=== PATIENT | female | born 1930 | race Caucasian/White ===

== ENCOUNTER 2021-06-07 12:23 | Emergency (ER) | payer MEDICARE, BC ==
--- NOTE | 2021-06-07 14:34 | RAD REPORT ---
EXAM DESCRIPTION: US - Extremity Venous Uni Ltd - 06/07/2021 2:20 pm CLINICAL HISTORY: PAIN Leg swelling and edema. COMPARISON: No comparisons FINDINGS: Right lower extremity venous system was interrogated with Doppler technique. Normal flow, compressibility and augmentation was noted. There is no DVT present. IMPRESSION: No evidence of right lower extremity deep venous thrombosis.
--- NOTE | 2021-06-07 15:35 | RAD REPORT ---
EXAM DESCRIPTION: RAD - Hip Right 2 View - 06/07/2021 2:39 pm CLINICAL HISTORY: PAIN COMPARISON: No comparisons FINDINGS: Mild osteoarthritis affects the right hip. No fracture, dislocation or AVN.
--- NOTE | 2021-06-07 16:30 | RAD REPORT ---
EXAM DESCRIPTION: CT - Pelvis Wo Cont - 06/07/2021 4:16 pm CLINICAL HISTORY: right hip pain Right hip pain and swelling COMPARISON: No comparisons TECHNIQUE: All CT scans are performed using dose optimization technique as appropriate and may inclu de automated exposure control or mA/KV adjustment according to patient size. FINDINGS: Diffuse osteopenia is noted. Mild arthritic changes are present in both hips. No acute fracture, dislocation or AVN. Linear lucency is seen involving the right lateral inferior aspect of the L4 vertebral body suspiciou s for mild fracture. IMPRESSION: No right hip or pelvic fracture seen. Mild osteoporotic fracture likely present involving the L4 vertebral body right lateral inferior aspe ct.
[2021-06-07] MEDS ORDERED: FENTANYL CITR 100 MCG/2 ML ONE (16:54)
--- NOTE | 2021-06-07 17:00 | EDPHYS ---
Physician Documentation [facility] Name: Kay Patten Age: 89 yrs Sex: Female : 1930 Arrival Date: 06/07/2021 Time: 12:31 Bed 16 Private MD: Randy Camacho H ED Physician Freddie Parmar HPI: 06/07 13:45 This 89 yrs old Female presents to ER via Wheelchair with complaints of Leg Pain. cp 13:45 The patient presents with pain, that is acute. The complaints affect the right gluteal cp fold, right hamstring, right upper thigh and right quadriceps. 13:45 Context: resulted from an unknown cause, the patient can partially bear weight, the cp patient is able to ambulate, with moderate difficulty. Onset: The symptoms/episode began/occurred 1 week(s) ago. Associated signs and symptoms: Pertinent negatives calf tenderness, fever, numbness, swelling, weakness. Patient reports she is currently taking oral steroids and has pain meds prescribed by DR Balderas. Historical: - Allergies: 12:35 No Known Allergies; jd3 - Home Meds: 12:35 Lisinopril Oral [Active]; glimepiride Oral [Active]; Furosemide Oral [Active]; jd3 gabapentin oral [Active]; Hydrocodone-Acetaminophen Oral [Active]; amlodipine oral [Active]; - PMHx: 12:35 Diabetes - NIDDM; Hypertension; jd3 - Immunization history:: Adult Immunizations up to date, Client reports receiving the 2nd dose of the Covid vaccine. - Social history:: Smoking status: Patient denies any tobacco usage or history of. ROS: 14:00 MS/extremity: Positive for pain, of the right leg, Negative for injury or acute cp deformity, decreased range of motion, paresthesias. 14:00 Constitutional: Negative for body aches, chills, fever, poor PO intake. cp 14:00 Cardiovascular: Negative for chest pain, palpitations. 14:00 Respiratory: Negative for cough, shortness of breath, wheezing. 14:00 Abdomen/GI: Negative for abdominal pain, nausea, vomiting, and diarrhea, constipation, bowel incontinence. 14:00 Back: Negative for injury or acute deformity. 14:00 : Negative for urinary symptoms, difficulty urinating, bladder incontinence. 14:00 Neuro: Negative for dizziness, headache, numbness, tingling, weakness, saddle anesthesia. Exam: 14:03 Constitutional: The patient appears in no acute distress, alert, awake, cp non-diaphoretic, non-toxic, well developed, well nourished. 14:03 Head/Face: Normocephalic, atraumatic. cp 14:03 Eyes: Periorbital structures: appear normal, Conjunctiva: normal, no exudate, no injection, Sclera: no appreciated abnormality, Lids and lashes: appear normal, bilaterally. 14:03 ENT: External ear(s): are unremarkable, Nose: is normal, Mouth: Lips: moist, Oral mucosa: moist, Posterior pharynx: Airway: no evidence of obstruction, patent. 14:03 Neck: ROM/movement: is normal, is supple, without pain, no range of motions limitations. 14:03 Chest/axilla: Inspection: normal. 14:03 Cardiovascular: Rate: normal. 14:03 Respiratory: the patient does not display signs of respiratory distress, Respirations: normal, no use of accessory muscles, no retractions, labored breathing, is not present. 14:03 Abdomen/GI: Inspection: abdomen appears normal, Palpation: abdomen is soft and non-tender, in all quadrants. 14:03 Back: pain, that is moderate, of the right buttock, vertebral tenderness, is not appreciated, Straight leg raises: of both lower extremities does not illicit pain. 14:03 Musculoskeletal/extremity: Extremities: grossly normal except: noted in the right upper thigh and right hamstring: pain, tenderness, ROM: limited passive range of motion due to pain, in the right hip, Perfusion: the extremity is normally perfused throughout. Vital Signs: 12:39 BP 123 / 65; Pulse 70; Resp 17 S; Temp 98.78(TE); Pulse Ox 99% on R/A; Weight 61.69 kg jd3 (R); Height 5 ft. 5 in. (165.10 cm) (R); Pain 10/10; 17:30 BP 124 / 70; Pulse 68; Resp 16; Pulse Ox 98% ; Pain 3/10; cb5 12:39 Body Mass Index 22.63 (61.69 kg, 165.10 cm) jd3 MDM: 16:59 Patient medically screened. cp 16:59 Data reviewed: vital signs, nurses notes, radiologic studies, CT scan, plain films, cp ultrasound. 16:59 Counseling: I had a detailed discussion with the patient and/or guardian regarding: the cp historical points, exam findings, and any diagnostic results supporting the discharge/admit diagnosis, radiology results, the need for outpatient follow up, a spray painting machine operator, neurosurgery, to return to the emergency department if symptoms worsen or persist or if there are any questions or concerns that arise at home. Response to treatment: the patient's symptoms have markedly improved after treatment, and as a result, I will discharge patient. ED course: VSS. Patient has prescribed hydrocodone at home for pain. Recommend use of walker to ambulate. Will discharge to home for continued monitoring. 06/07 13:35 Order name: US Extremity Venous Unilateral Ltd; Complete Time: 15:41 cp 06/07 13:35 Order name: XRAY Hip RIGHT 2 view; Complete Time: 15:41 cp 06/07 15:42 Order name: CT Pelvis wo Cont; Complete Time: 16:34 cp Administered Medications: 16:45 CANCELLED (Physician Discretion): morphine 4 mg IM once; RASS on ADMIN: Combtv4, Very cp Agttd3, Agttd2, Rstlss1, AlertClm0, Drwsy-1, Lt Sdtn-2, Mod Sdtn-3, Dp Sdtn-4, UnArsble-5 16:57 Drug: fentaNYL (PF) 25 mcg Route: IM; Site: right deltoid; cb5 Disposition: 17:15 Chart complete. cp Disposition Summary: 06/07/21 16:59 Discharge Ordered Location: Home cp Problem: new cp Symptoms: have improved cp Condition: Stable cp Diagnosis - Fracture of fourth lumbar vertebra cp - Radiculopathy, lumbar region - right cp Followup: cp - With: Fei Berry MD - When: 1 week - Reason: lumbar vertebral fracture Discharge Instructions: - Discharge Summary Sheet cp - Spinal Compression Fracture cp - Lumbosacral Radiculopathy cp Forms: - Medication Reconciliation Form cp - Thank You Letter cp - Antibiotic Education cp - Prescription Opioid Use cp Addendum: 06/09/2021 08:33 Co-signature as Attending Physician, Freddie Parmar MD I agree with the assessment and k dr plan of care. Signatures: Dispatcher [employer] EDFreddie Canales MD MD kdr Luis Alberto Brown PA PA cp Duncan Maldonado RN RN jd3 Teressa Ramírez RN RN cb5 Corrections: (The following items were deleted from the chart) 06/07 16:45 13:35 morphine 4 mg IM once; RASS on ADMIN: Combtv4, Very Agttd3, Agttd2, Rstlss1, cp AlertClm0, Drwsy-1, Lt Sdtn-2, Mod Sdtn-3, Dp Sdtn-4, UnArsble-5 ordered. cp 17:01 16:59 Wedge compression fracture of unspecified lumbar vertebra, initial encounter for cp closed fracture - Fourth cp
--- NOTE | 2021-06-07 17:00 | ER ---
Nurse's Notes [facility] Name: Kay Patten Age: 89 yrs Sex: Female : 1930 Arrival Date: 06/07/2021 Time: 12:31 Bed 16 Private MD: Randy Camacho H Diagnosis: Fracture of fourth lumbar vertebra;Radiculopathy, lumbar region-right Presentation: 06/07 12:34 Chief complaint: Patient states: "I am having pain in my right leg. Dr. Bautista sent me jd3 here, my pain doctor. he put me on a steroid a couple of days ago think it was a pinched nerve or something, but nothing is helping.". Coronavirus screen: At this time, the client does not indicate any symptoms associated with coronavirus-19. Ebola Screen: No symptoms or risks identified at this time. Initial Sepsis Screen: Does the patient meet any 2 criteria? No. Patient's initial sepsis screen is negative. Does the patient have a suspected source of infection? No. Patient's initial sepsis screen is negative. Risk Assessment: Do you want to hurt yourself or someone else? Patient reports no desire to harm self or others. Note hydrocodone taken about 1 hour ago. Onset of symptoms was June 07, 2021. 12:34 Method Of Arrival: Wheelchair jd3 12:34 Acuity: SALONI 3 jd3 Historical: - Allergies: 12:35 No Known Allergies; jd3 - Home Meds: 12:35 Lisinopril Oral [Active]; glimepiride Oral [Active]; Furosemide Oral [Active]; jd3 gabapentin oral [Active]; Hydrocodone-Acetaminophen Oral [Active]; amlodipine oral [Active]; - PMHx: 12:35 Diabetes - NIDDM; Hypertension; jd3 - Immunization history:: Adult Immunizations up to date, Client reports receiving the 2nd dose of the Covid vaccine. - Social history:: Smoking status: Patient denies any tobacco usage or history of. Screenin:50 Abuse screen: Denies threats or abuse. Denies injuries from another. Nutritional cb5 screening: No deficits noted. Tuberculosis screening: No symptoms or risk factors identified. Fall Risk None identified. Assessment: 12:50 General: Appears in no apparent distress. comfortable, well groomed, well nourished, cb5 Behavior is calm, cooperative, appropriate for age. Pain: Complains of pain in left leg Pain currently is 5 out of 10 on a pain scale. Quality of pain is described as burning, aching. Neuro: No deficits noted. Cardiovascular: No deficits noted. Respiratory: No deficits noted. GI: No deficits noted. : No deficits noted. EENT: No deficits noted. Derm: No deficits noted. Musculoskeletal: No deficits noted. 14:04 Reassessment: pt is aware morphine is available for pain, she declines it at this time. cb5 pt having US done at bedside at this time. 15:28 Reassessment: Assisted patient on and off bedpan. Pt voided medium amount. Liz care cb5 done, pt jamar well. 16:16 Reassessment: Patient denies pain at this time. cb5 16:30 Reassessment: Assisted pt on and off bedpan. Pt voided large amount of yellow output. cb5 Liz care done. 16:47 Reassessment:. cb5 17:30 Reassessment:. cb5 17:30 Reassessment: patienet states her pain is now a 3/10 since the pain medication. Pt cb5 responded well, to pain medication, no reaction noted. Vital Signs: 12:39 BP 123 / 65; Pulse 70; Resp 17 S; Temp 98.78(TE); Pulse Ox 99% on R/A; Weight 61.69 kg jd3 (R); Height 5 ft. 5 in. (165.10 cm) (R); Pain 10/10; 17:30 BP 124 / 70; Pulse 68; Resp 16; Pulse Ox 98% ; Pain 3/10; cb5 12:39 Body Mass Index 22.63 (61.69 kg, 165.10 cm) jd3 ED Course: 12:31 Patient arrived in ED. ds1 12:31 Randy Camacho DO is Private Physician. ds1 12:35 Triage completed. jd3 12:39 Arm band placed on. jd3 12:50 Allergy band placed. Fall risk band placed. Bed in low position. Call light in reach. cb5 Side rails up X 1. 12:50 No provider procedures requiring assistance completed. cb5 13:04 Teressa Ramírez, RN is Primary Nurse. cb5 13:16 Luis Alberto Brown PA is PHCP. cp 13:16 Freddie Parmar MD is Attending Physician. cp 14:18 US Extremity Venous Unilateral Ltd In Process Unspecified. EDMS 14:39 XRAY Hip RIGHT 2 view In Process Unspecified. EDMS 16:16 CT Pelvis wo Cont In Process Unspecified. EDMS 16:56 Fei Berry MD is Referral Physician. cp Administered Medications: 16:45 CANCELLED (Physician Discretion): morphine 4 mg IM once; RASS on ADMIN: Combtv4, Very cp Agttd3, Agttd2, Rstlss1, AlertClm0, Drwsy-1, Lt Sdtn-2, Mod Sdtn-3, Dp Sdtn-4, UnArsble-5 16:57 Drug: fentaNYL (PF) 25 mcg Route: IM; Site: right deltoid; cb5 Outcome: 16:59 Discharge ordered by MD. cp 17:45 Discharged to home via wheelchair. cb5 17:45 Condition: stable 17:45 Discharge instructions given to patient. 17:51 Patient left the ED. iw Signatures: Dispatcher [employer] EDNV Lisa Soares ds1 Rosie Moore RN RN iw Luis Alberto Brown PA PA cp Duncan Maldonado RN RN Teressa Wyatt, RN RN cb5
[2021-06-07 18:25] VITALS: BP 124/70; O2SAT 98
== END 2021-06-07 17:51 | disposition home or self-care (01) ==
LOC: ER 12:23
DX: S32.049A Unspecified fracture of fourth lumbar vertebra, initial encounter for closed fracture (principal); M54.16 Radiculopathy, lumbar region; I10 Essential (primary) hypertension; E11.9 Type 2 diabetes mellitus without complications
CPT/HCPCS: 72192; 73502; 93971; 96372; 99283; J3010

== ENCOUNTER 2021-06-14 08:34 | Observation (INO) | payer MEDICARE, BC ==
--- NOTE | 2021-06-14 09:51 | RAD REPORT ---
EXAM DESCRIPTION: CT - Pelvis Wo Cont - 06/14/2021 9:11 am CLINICAL HISTORY: Fall, persistent pelvic and hip pain COMPARISON: CT pelvis June 07 TECHNIQUE: Axial [address] pelvis and upper thigh images were obtained with sagittal and coronal recon struction images reviewed. All CT scans are performed using dose optimization technique as appropriate and may include automated exposure control or mA/KV adjustment according to patient size. FINDINGS: No acute fracture of the bony pelvis identified. Patient has well-healed bilateral old isc hial fractures. No proximal femur fracture seen. Both femoral heads maintain smooth rounded contour w ith no AVN or focal femoral head abnormality. Sacral ala are intact. No periarticular mass or hematom a. No suspicious soft tissue finding seen. Advanced degenerative changes are present in the lumbar spine. L3 vertebral plana compression fractur e is present. Retropulsion of the posterior wall causes central spinal stenosis and bilateral foramin al stenosis. Fracture along the right lateral inferior L4 body is noted. This matches finding from [facility]. Advanced facet joint degenerative changes are present in the lower lumbar spine. The L3 and L4 findings are new from 2017 but are otherwise of unknown age. Prominent thickened soft tissues are present in the perianal and distal rectal region. CT assessment is limited in this region though a mass cannot be excluded and may need follow-up with physical exam or endoscopy. IMPRESSION: No fracture of the pelvis or proximal femora. L3 vertebra plana compression fracture deformity and the right lateral inferior L4 fracture are both suspected to be subacute to old. Though a age is indeterminate. The lumbar fracture changes and degenerative changes result in significant spinal stenosis and forami nal stenosis in the mid and lower lumbar spine. Thickened soft tissues around the distal rectum and anus. CT sensitivity is limited in this region. M ass lesion cannot be excluded and may need correlation with digital examination and/or endoscopy.
[2021-06-14] MEDS ORDERED: HYDROCODONE/APAP 7.5/325 MG TAB ONE (10:22)
[2021-06-14] MEDS ORDERED: METHYLPREDNISOLONE 125 MG INJ ONE (11:30)
[2021-06-14] MEDS ORDERED: GABAPENTIN 300 MG CAP ONE (11:31)
[2021-06-14] MEDS ORDERED: HYDROMORPHONE HCL 2 MG/ML inj ONE (11:31)
[2021-06-14] MEDS ORDERED: ONDANSETRON 4 MG/2 ML VIAL ONE (11:31)
--- NOTE | 2021-06-14 12:08 | ER ---
Nurse's Notes [facility] Name: Kay Patten Age: 89 yrs Sex: Female : 1930 Arrival Date: 06/14/2021 Time: 08:37 Bed 26 Private MD: Diagnosis: Low back pain Presentation: 06/14 08:39 Chief complaint: EMS states: Pt fell 1 week ago and was brought here to ED then. jh5 However, pt normally walks but since the fall is now not wanting to get up due to 10/10 pain to right hip. Pt took Guys at 7am and is normally due for a second around 1300 per home health RN but the norco isn't helping. Coronavirus screen: Vaccine status: Patient reports receiving the 2nd dose of the covid vaccine. Client denies travel out of the [place] in the last 14 days. At this time, the client does not indicate any symptoms associated with coronavirus-19. Ebola Screen: Patient negative for fever greater than or equal to 101.5 degrees Fahrenheit, and additional compatible Ebola Virus Disease symptoms Patient denies exposure to infectious person. Patient denies travel to an Ebola-affected area in the 21 days before illness onset. Initial Sepsis Screen: Does the patient meet any 2 criteria? No. Patient's initial sepsis screen is negative. Does the patient have a suspected source of infection? No. Patient's initial sepsis screen is negative. Risk Assessment: Do you want to hurt yourself or someone else? Patient reports no desire to harm self or others. Onset of symptoms. 08:39 Method Of Arrival: EMS: [place] [id number] 08:39 Acuity: SALONI 3 jh5 Triage Assessment: 08:43 General: Appears in no apparent distress. uncomfortable, slender, well groomed, well jh5 developed, well nourished, Behavior is calm, cooperative, appropriate for age. Pain: Complains of pain in right hip. Historical: - PMHx: 08:43 Diabetes - NIDDM; Hypertension; 5 - Immunization history:: Adult Immunizations up to date. - Social history:: Smoking status: Patient denies any tobacco usage or history of. - Family history:: not pertinent. Screenin:00 Abuse screen: Denies threats or abuse. Denies injuries from another. Nutritional ic1 screening: No deficits noted. Tuberculosis screening: No symptoms or risk factors identified. Fall Risk None identified. Assessment: 09:00 Reassessment: Pt states she was brought in for worsening R hip pain after a fall that ic1 occurred on last week. She states after her fall she was seen here in ED shortly after, but does not feel relief. Pt denies any other recent trauma or pain. AAOx3. GCS 15. General: Appears in no apparent distress. Behavior is calm, cooperative. Pain: Complains of pain in right iliac crest and right hip. Neuro: Level of Consciousness is awake, alert, obeys commands, Oriented to person, place, situation. Cardiovascular: No deficits noted. Respiratory: No deficits noted. GI: No deficits noted. : No deficits noted. EENT: No deficits noted. Derm: No deficits noted. Musculoskeletal: No deficits noted. 09:03 Reassessment: Pt transported to CT via stretcher at this time. In NAD. ic1 13:17 Reassessment: Pt resting quietly on cont monitoring. this RN provided pt with brief ic1 just in case she has accident, pt states she is ok for now. Briefs at bedside. Call light left within pt's reach. 16:35 Reassessment: Xray at pt's bedside. ic1 Vital Signs: 08:39 BP 133 / 67; Pulse 75; Resp 18; Temp 98.8; Pulse Ox 99% on R/A; Weight 61.69 kg; Height jh5 5 ft. 5 in. (165.10 cm); Pain 10/10; 09:00 BP 122 / 59; Resp 16; Pulse Ox 99% on R/A; ic1 10:28 BP 132 / 77; Pulse 65; Resp 16; Pulse Ox 100% on R/A; ic1 13:18 BP 118 / 58; Pulse 67; Resp 16; Pulse Ox 99% on R/A; ic1 15:44 BP 100 / 72; Pulse 68; Resp 16; Pulse Ox 97% on R/A; ic1 18:38 BP 111 / 67; Pulse 98; Resp 18; Pulse Ox 99% on R/A; ic1 08:39 Body Mass Index 22.63 (61.69 kg, 165.10 cm) [facility] ED Course: 08:37 Patient arrived in ED. ss 08:40 Luis Alberto Brown PA is PHCP. cp 08:40 Morales Farley MD is Attending Physician. cp 08:43 Triage completed. [facility] 08:43 Arm band placed on right wrist. [facility] 08:59 Erin eVla, DANIEL is Primary Nurse. ic1 09:00 Patient has correct armband on for positive identification. Bed in low position. Call ic1 light in reach. Side rails up X2. 09:11 CT Pelvis wo Cont In Process Unspecified. EDMS 10:28 Door closed. Warm blanket given. Pillow given. Head of bed lowered. ic1 12:07 Morales Salazar MD is Hospitalizing Provider. ma2 15:38 PO fluids given. Pt tolerating food brought by family from bedside. States pain ic1 decreased and she feels better. . 16:35 Placed in gown. ic1 18:34 Pulse ox on. NIBP on. Visitors limited. Lights dimmed. Warm blanket given. Diet tray ic1 given. PO fluids given. Pt moved into stretcher from chair bed for comfort. States she feels much better. Pt tolerated. Family left to go home. Left phone number. [phone]. Administered Medications: 10:20 Drug: Hydrocodone-Acetaminophen (7.5 mg-325 mg) 1 tabs Route: PO; ic1 11:44 Drug: MethylPrednisoLONE 125 mg Route: IVP; Site: left hand; ic1 11:45 Drug: Gabapentin 300 mg Route: PO; ic1 11:45 Drug: Dilaudid (HYDROmorphone) 1 mg Route: IVP; Site: left hand; ic1 11:45 Drug: Zofran (Ondansetron) 4 mg Route: IVP; Site: left hand; ic1 Outcome: 12:07 Decision to Hospitalize by Provider. ma2 06/15 11:52 Patient left the ED. eb Signatures: Dispatcher [employer] EDNC Babita Barbosa RN RN Luis Alberto Brown PA PA cp Alzahri, Mohammad, MD MD txKimberly Mckay Jessica RN DANIEL [facility] Erin Vela RN RN ic1
--- NOTE | 2021-06-14 12:08 | EDPHYS ---
Physician Documentation [facility] Name: Kay Patten Age: 89 yrs Sex: Female : 1930 Arrival Date: 06/14/2021 Time: 08:37 Bed 26 Private MD: ED Physician Morales Farley HPI: 06/14 09:13 This 89 yrs old Female presents to ER via EMS with complaints of right hip pain. ma2 09:13 Patient fell 3 days since then, unable to walk pain is constant worse with movement. ma2 Historical: - PMHx: 08:43 Diabetes - NIDDM; Hypertension; jh5 - Immunization history:: Adult Immunizations up to date. - Social history:: Smoking status: Patient denies any tobacco usage or history of. - Family history:: not pertinent. ROS: 09:13 Constitutional: Negative for fever, chills, and weight loss. ma2 09:13 All other systems are negative. Exam: 09:13 Constitutional: This is a well developed, well nourished patient who is awake, alert, ma2 and in no acute distress. Chest/axilla: Normal chest wall appearance and motion. Nontender with no deformity. No lesions are appreciated. Cardiovascular: Regular rate and rhythm with a normal S1 and S2. No gallops, murmurs, or rubs. Normal PMI, no JVD. No pulse deficits. Respiratory: Lungs have equal breath sounds bilaterally, clear to auscultation and percussion. No rales, rhonchi or wheezes noted. No increased work of breathing, no retractions or nasal flaring. Abdomen/GI: Soft, non-tender, with normal bowel sounds. No distension or tympany. No guarding or rebound. No evidence of tenderness throughout. Back: No spinal tenderness. No costovertebral tenderness. Full range of motion. Skin: Warm, dry with normal turgor. Normal color with no rashes, no lesions, and no evidence of cellulitis. MS/ Extremity: Right hip exam unremarkable, pulses equal, no cyanosis. Neurovascular intact. Full, normal range of motion. Neuro: Awake and alert, GCS 15, oriented to person, place, time, and situation. Cranial nerves II-XII grossly intact. Motor strength 5/5 in all extremities. Sensory grossly intact. Cerebellar exam normal. Normal gait. Vital Signs: 08:39 BP 133 / 67; Pulse 75; Resp 18; Temp 98.8; Pulse Ox 99% on R/A; Weight 61.69 kg; Height jh5 5 ft. 5 in. (165.10 cm); Pain 10/10; 09:00 BP 122 / 59; Resp 16; Pulse Ox 99% on R/A; ic1 10:28 BP 132 / 77; Pulse 65; Resp 16; Pulse Ox 100% on R/A; ic1 13:18 BP 118 / 58; Pulse 67; Resp 16; Pulse Ox 99% on R/A; ic1 15:44 BP 100 / 72; Pulse 68; Resp 16; Pulse Ox 97% on R/A; ic1 18:38 BP 111 / 67; Pulse 98; Resp 18; Pulse Ox 99% on R/A; ic1 08:39 Body Mass Index 22.63 (61.69 kg, 165.10 cm) jh5 MDM: 08:42 Patient medically screened. ma2 12:02 Differential diagnosis: closed fracture, abrasion, tendonitis. Data reviewed: vital al2 signs, nurses notes, EMS record. Counseling: I had a detailed discussion with the patient and/or guardian regarding: the historical points, exam findings, and any diagnostic results supporting the discharge/admit diagnosis, the presence of at least one elevated blood pressure reading (>120/80) during this emergency department visit, radiology results. Response to treatment: There is no appreciated change of the patient's symptoms at this time. ED course: Patient has compression fracture of lumbar spine 3 and lumbar spine fall, with mild canal stenosis, however clinically there is no no cord compression, as there is no midline tenderness, no focal weakness change in sensation or urinary symptoms incontinence or retention. No saddle anesthesia.. ED course: Patient given pain medication. 12:06 ED course: Patient would like to be admitted for back pain, as she is unable to walk ma2 intractable back pain, no emergent spine surgery needed at this time, they will follow up with spine surgeon and pain management once discharged, I told patient that we can ops overnight for less than 24 hours for pain control.. 06/14 12:55 Order name: CBC with Automated Diff EDMS 06/14 12:55 Order name: CBC with Automated Diff EDMS 06/14 12:55 Order name: Comprehensive Metabolic Panel EDMS 06/14 12:55 Order name: Comprehensive Metabolic Panel EDMS 06/14 15:35 Order name: COVID-19 SARS RT PCR (Document "Date of Onset" if Symptomatic) 06/14 18:06 Order name: SARS-COV-2 RT PCR EDOR 06/14 08:42 Order name: CT Pelvis wo Cont; Complete Time: 10:16 al2 06/14 12:56 Order name: Lumbar Spine Wo Con EDMS 06/14 16:28 Order name: Chest Single View XRAY al2 06/14 16:54 Order name: RAD EDMS 06/15 03:04 Order name: Phosphorus EDMS 06/15 03:04 Order name: Magnesium EDMS 06/15 03:35 Order name: Manual Differential EDMS 06/14 11:19 Order name: IV Start; Complete Time: 11:30 al2 06/14 12:55 Order name: Heart Healthy EDMS Administered Medications: 10:20 Drug: Hydrocodone-Acetaminophen (7.5 mg-325 mg) 1 tabs Route: PO; ic1 11:44 Drug: MethylPrednisoLONE 125 mg Route: IVP; Site: left hand; ic1 11:45 Drug: Gabapentin 300 mg Route: PO; ic1 11:45 Drug: Dilaudid (HYDROmorphone) 1 mg Route: IVP; Site: left hand; ic1 11:45 Drug: Zofran (Ondansetron) 4 mg Route: IVP; Site: left hand; ic1 Disposition Summary: 06/14/21 12:07 Hospitalization Ordered Hospitalization Status: Observation ma2 Provider: Morales Salazar Condition: Stable ma2 Problem: new ma2 Symptoms: are unchanged ma2 Bed/Room Type: Standard ma2 Location: Telemetry/MedSurg (observation)(06/15/21 10:11) dw Room Assignment: 218(06/15/21 10:11) dw Diagnosis - Low back pain ma2 Forms: - Medication Reconciliation Form ma2 - SBAR form ma2 Signatures: Dispatcher [employer] EDMS Noemi Bingham Diana, RN RN dw Alzahri, Mohammad, MD MD ma2 Rees, Jessica, RN RN 5 Erin Vela RN RN ic1 Corrections: (The following items were deleted from the chart) 09: 08:56 Hip Right Wo Con ordered. EDMS EDMS 17:11 12:07 Telemetry/MedSurg (observation) al2 bd 17: 12:07 al2 bd 17:11 17:11 bd bd 06/15 10:11 06/14 17:11 [facility] ER HOLD bd dw 06/15 10:06/14 17:11 ERHOLD- bd dw
[2021-06-14] MEDS ORDERED: ONDANSETRON 4 MG/2 ML VIAL IV PRN (12:52)
[2021-06-14] MEDS ORDERED: ACETAMINOPHEN 500 MG TAB PO PRN (12:52)
[2021-06-14] MEDS: NA CHLORIDE 0.9% 1,000 ML IV SCH ×2 (13:00→23:00)
[2021-06-14] MEDS: dexAMETHasone 4 MG/ML VIAL IV SCH ×2 (14:00→18:00)
--- NOTE | 2021-06-14 16:53 | RAD REPORT ---
EXAM DESCRIPTION: RAD - Chest Single View - 06/14/2021 4:44 pm CLINICAL HISTORY: CONGESTION Chest pain. COMPARISON: Chest Single View dated 03/31/2016; CHEST SINGLE VIEW dated 07/04/2014 FINDINGS: Portable technique limits examination quality. The lungs are emphysematous but grossly clear. The heart is normal in size. No displaced fractures.Mo derate hiatal hernia. IMPRESSION: Mild to moderate COPD.
[2021-06-14] MEDS ORDERED: dexAMETHasone 10 MG/ML VIAL ONE (17:38)
[2021-06-14] MEDS ORDERED: NA CHLORIDE 0.9% 1,000 ML ONE (17:38)
[2021-06-14] MEDS ORDERED: dexAMETHasone 10 MG/ML VIAL IV SCH (18:00)
[2021-06-14] MEDS: FENTANYL CITR 100 MCG/2 ML IV PRN (18:16)
[2021-06-14] MEDS ORDERED: FENTANYL CITR 100 MCG/2 ML ONE (18:16)
--- NOTE | 2021-06-14 19:59 | P.HP ---
Certification for Inpatient Patient admitted to: Observation With expected LOS: <2 Midnights Patient will require the following post-hospital care: None Practitioner: I am a practitioner with admitting privileges, knowledge of patient current condition, hospital course, and medical plan of care. Services: Services provided to patient in accordance with Admission requirements found in Title 42 Section 412.3 of the Code of Federal Regulations Patient History Date of Service: 06/14/21 Reason for admission: Low back pain History of Present Illness: Patient is an 89yo who came into the hospital with low back pain. Patient has been having pain since yesterday. Patient was found to have a mild lumbar fracture. Patient came back to the hospital because the pain was not improving. Patient decided to come into the emergency room once again. CT scan once again shows a compression fracture as well as lumbar fracture at L3. However, patient also has some thickening in the rectal region which appears to be a rectal mass. Patient will get a CT abdomen and pelvis in the morning. Patient will get a GI consultation as well. Patient may need outpatient colonoscopy. Continue with antibiotics as patient appears to have a colitis. Patient will be admitted for further evaluation. Allergies No Known Allergies Allergy (Verified 08/03/16 07:07) Home Medications: Acetaminophen [Tylenol Arthritis] 650 mg PO BID 07/30/16 Calcium Carbonate/Vitamin D3 [Caltrate 600 + D Tablet] 1 each PO BID 07/30/16 Fish Oil/Borage/Flax/Om3,6,9 1 [[place] 3-6-9 1,200 mg Softgel] 1,200 mg PO DAILY 07/30/16 Glimepiride [Amaryl] 0.5 mg PO DAILY 07/30/16 Ibandronate Sodium [Boniva] 150 mg PO ONCE 07/30/16 Lisinopril/Hydrochlorothiazide [Lisinopril-Hctz 10-12.5 mg Tab] 1 each PO DAILY 07/30/16 Multivit-Min/FA/Lycopen/Lutein [Centrum Silver Tablet] 1 each PO DAILY 07/30/16 [place]-3 Fatty Acids [Fish Oil] 300 mg PO DAILY 07/30/16 Vit A/Vit C/Vit E/Zinc/Copper [Icaps Areds Formula Tablet] 1 each PO DAILY 07/30/16 Hydrocodone 7.5/APAP 325 [[place] 7.5/325 mg*] 1 tab PO Q6H PRN #30 tab 06/15/21 Levofloxacin [Levaquin] 500 mg PO DAILY #7 tablet 06/15/21 metroNIDAZOLE [Flagyl] 500 mg PO Q8H #21 tablet 06/15/21 - Past Medical/Surgical History Diabetic: Yes -: hypertension -: diabetes -: lumbar stenosis -: macular degeneration -: knee replacement bilateral -: bladder suspension -: right foot surgery -: cataract removal -: hernia repair - Family History Father Medical History: Other (see notes) Notes: Alzheimer's - Social History Alcohol use: No CD- Drugs: No Caffeine use: No Review of Systems 10-point ROS is otherwise unremarkable Physical Examination - Vital Signs Temperature: 98 F Blood Pressure: 140/80 Pulse: 80 Respirations: 18 Pulse Ox (%): 99 - Physical Exam General: Alert, In no apparent distress, Oriented x3 HEENT: Atraumatic, PERRLA, Mucous membr. moist/pink, EOMI, Sclerae nonicteric Neck: Supple, 2+ carotid pulse no bruit, No LAD, Without JVD or thyroid abnorma lity Respiratory: Clear to auscultation bilaterally, Normal air movement Cardiovascular: Regular rate/rhythm, Normal S1 S2, No murmurs Gastrointestinal: Normal bowel sounds, Soft and benign, Non-distended, No tenderness Musculoskeletal: No clubbing, No swelling, No tenderness Integumentary: No rashes Neurological: Normal speech, Normal strength at 5/5 x4 extr, Normal tone, Sensation intact, Cranial nerves 3-12 intact, Normal affect Lymphatics: No axilla or inguinal lymphadenopathy Assessment & Plan - Problems (Diagnosis) (1) Diabetes mellitus Status: Acute Qualifiers: Diabetes mellitus type: type 2 Diabetes mellitus complication status: without complication (2) Dyspnea Onset Date: 07/05/14 Status: Acute (3) Hypertension Status: Acute Qualifiers: Hypertension type: essential hypertension (4) Lumbar compression fracture Status: Acute (5) Back pain Status: Acute (6) Colitis Status: Acute - Plan Plan: 1. Continue with pain control 2. Antibiotics 3. Outpatient colonoscopy 4. Outpatient follow with pain specialist 5. GI and DVT prophylaxis Discharge Plan: Home Plan to discharge in: Greater than 2 days - Advance Directives Does patient have a Living Will: No Does patient have a Durable POA for Healthcare: Yes - Code Status/Comfort Care Code Status Assessed: Yes Code Status: Full Code Critical Care: No Time Spent Managing PTS Care (In Minutes): 45
[2021-06-14] MEDS ORDERED: Levofloxacin500mg IV 500 MG/100 ML BAG IV SCH (20:00)
[2021-06-14] MEDS ORDERED: dexAMETHasone 4 MG/ML VIAL ONE (21:05)
[2021-06-14] MEDS ORDERED: METRONIDAZOLE 500mg IVPB 500 MG/100 ML BAG IV ONE (21:06)
[2021-06-14] MEDS ORDERED: Levofloxacin500mg IV 500 MG/100 ML BAG IV ONE (21:06)
--- NOTE | 2021-06-14 21:47 | RAD REPORT ---
EXAM DESCRIPTION: MRI - Lumbar Spine Wo Con- 06/14/2021 9:33 pm CLINICAL HISTORY: LBP; compression fx; inability to ambulate COMPARISON: No comparisons FINDINGS: Marked compression/flattening deformity of the L3 vertebral body is seen compatible with v ertebra plana. There is little elevated T2 or STIR signal within this vertebral body suggesting that this is an old compression deformity. Retropulsion at this level results in moderate canal stenosis a nd marked stenosis of the right lateral recess at L3-4. Diminished T1 marrow signal and elevated T2/IR signal is seen in the L4 vertebral body. There is a coleman btle loss of vertebral body height of L4 also present. The findings are suspicious for an impending c ompression fracture of L4. Significant right-sided facet hypertrophy with posterior disc bulging L4-5 causes right lateral reces s stenosis. IMPRESSION: Impending osteoporotic compression fracture involving L4 vertebral body is suspected. At the current moment, the vertebral body height is about 90% of normal. Chronic vertebra plana of L3 is identified with advanced right lateral recess stenosis at L3-4. Advanced right lateral recess stenosis at L4-5.
[2021-06-14 23:46] VITALS: BMI 26.7
[2021-06-15] MEDS ORDERED: FENTANYL CITR 100 MCG/2 ML ONE ×2 (00:21→09:05)
[2021-06-15] MEDS: FENTANYL CITR 100 MCG/2 ML IV PRN ×2 (00:30→09:05)
[2021-06-15] MEDS: METRONIDAZOLE 500mg IVPB 500 MG/100 ML BAG IV SCH ×3 (00:33→15:15)
[2021-06-15 02:42] LABS: Absolute Lymphocytes (CBC) 0.4 K/uL (0.7-4.9); Hematocrit 34.5 % (36.0-45.0); Lymphocytes % 8.1 % (15.3-44.8); MPV 6.8 fL (7.6-11.3); RBC Red Blood Cell Count 3.85 M/uL (3.86-4.86)
[2021-06-15 03:03] LABS: Albumin 2.9 g/dL (3.4-5.0); Bilirubin Total 0.3 mg/dL (0.2-1.0); Magnesium 2.2 mg/dL (1.8-2.4); Phosphorus 2.1 mg/dL (2.5-4.9); Potassium 4.4 mmol/L (3.5-5.1); Protein, Total 6.5 g/dL (6.4-8.2)
[2021-06-15 03:34] LABS: Blood Morphology Comment NOT SEEN (NOT SEEN); Platelet Estimate ADEQ
[2021-06-15] MEDS ORDERED: dexAMETHasone 4 MG/ML VIAL ONE (04:51)
[2021-06-15] MEDS: dexAMETHasone 4 MG/ML VIAL IV SCH ×4 (06:00→18:11)
[2021-06-15] MEDS: NA CHLORIDE 0.9% 1,000 ML IV SCH ×2 (09:00→15:14)
[2021-06-15] MEDS ORDERED: METRONIDAZOLE 500mg IVPB 500 MG/100 ML BAG IV ONE (09:53)
[2021-06-15 10:41] VITALS: O2SAT 99
[2021-06-15] MEDS ORDERED: NA CHLORIDE 0.9% 1,000 ML ONE (10:48)
--- NOTE | 2021-06-15 12:14 | RAD REPORT ---
EXAM DESCRIPTION: CT - Abdomen Pelvis W Contrast - 06/15/2021 11:15 am CLINICAL HISTORY: rectal mass COMPARISON: Abdomen Pelvis W Contrast dated 07/19/2016 TECHNIQUE: Biphasic, helical CT imaging of the abdomen and pelvis was performed following 100 ml non -ionic IV contrast. Oral contrast was given. All CT scans are performed using dose optimization technique as appropriate and may include automated exposure control or mA/KV adjustment according to patient size. FINDINGS: No suspicious findings in the lung bases. The liver, spleen, and pancreas show no suspicious findings. No gallbladder abnormality seen. Biliary tree is prominent. This is not unexpected in a patient this age. This is probably still within range of normal but correlation can be made with any clinical or laboratory findings for biliary obstructi on. There is no duodenal or pancreatic mass. Duct stones can be occult. Symmetric renal function is seen with no hydronephrosis or suspicious renal mass. No pyelonephritis o r acute parenchymal process. No bladder abnormalities. No adrenal abnormalities. Atrophic uterus is n oted. No ovarian or adnexal abnormality seen. Ovaries are not clearly distinguishable from the adjace nt isodense bowel. Large hiatal hernia is present with approximately 2/3 of the stomach intrathoracic. This distorts the contour the stomach and precludes accurate assessment of the gastric gore. This is not grossly diff erent from prior imaging. No small bowel dilatation. Moderately large stool volume fills the tortuous and redundant rectosigmoi d colon. Contrast has reached the splenic flexure. There is prominent soft tissue along the lateral a nd posterolateral right side of the distal most rectum at the anus. CT assessment through this region is limited. This would match the history of rectal mass. CT imaging is limited in evaluating anal an d perineum soft tissues. No free air, free fluid or inflammatory stranding. No hernia, mass or bulky lymphadenopathy. No suspicious bony findings. Prominent degenerative changes are present. Spinal stenosis changes are present in the mid lumbar spine secondary to degenerative change in the vertebral plana compression f racture deformity of L3. This appears to be chronic. There is 50% compression fracture deformity of T 12. . IMPRESSION: Approximately 3 centimeter area of thickened soft tissues noted along the right lateral and posterolateral aspect of the distal rectum at the anus. This would be consistent with the provide d history of rectal mass. Elsewhere in the colon there is diverticulosis with moderate stool volume filling the remainder of th e colon. No other acute colon process seen. No ascites, omental thickening, lymphadenopathy or other suspicious findings noted. Nonacute finding s are detailed in the body of the report.
[2021-06-15] MEDS ORDERED: HYDROCODONE/APAP 7.5/325 MG TAB PO PRN (15:02)
[2021-06-15] MEDS ORDERED: PNEUMOCOCCAL VACCINE 0.5 ML IMVAC ONE (20:00)
--- NOTE | 2021-06-17 00:24 | CON ---
Date of Consultation: 06/15/2021 Reason For Consultation: Rectal mass seen on CT scan of abdomen and pelvis. History Of Present Illness: Patient is an 89-year-old white female with history of diabetes, hyperte nsion, lumbar stenosis, presented to the hospital with low back pain, found to have an L4 compression fracture that is "pending." She had a CT scan to evaluate and it looks like, she has a 3 cm mass in the rectum. It was identified. Patient reports last colonoscopy of 10-20 years ago, negative by he r recollection. Past Medical History: Significant for diabetes, hypertension, lumbar stenosis, macular degeneration, bilateral knee replacements, right foot surgery, cataract surgery, and hernia repair. Home Medications: Include Tylenol, arthritis medication, Caltrate with vitamin D, Fish Oil _, Amaryl for diabetes, Boniva, lisinopril/hydrochlorothiazide combination pill, Centrum Silver, mult ivitamin, omega-3 fatty acids, vitamin A, C, E, zinc copper supplement. Allergies: NKDA. Social History: She is . 6 children. 1 son , 9 years old, due to defect _. She denies any tobacco or alcohol. Family History: Father of Alzheimer's. Mother of old age at 89. Sister of ovarian c ancer. Review of Systems: Patient has back pain, but denies any shortness of breath, seizure, syncope, lower extremity edema, m uscle aches, joint aches, backaches, chest pain, shortness of breath, change in bowel habits, diarrhe a, melena, hematochezia, hematemesis, coffee-ground emesis, hematuria, dysuria, polydipsia, hemoptysi s or other. Physical Examination: Vital Signs: She is 5 feet 4 inches, 556 pounds, BMI of 26.8 kg/sq m. She has a temperature of 98.3 degrees Fahrenheit, pulse 87, respirations 16, blood pressure 132/63, O2 saturation 96%. General: She is an elderly female, lying in bed, in no acute distress. Very talkative and spry. HEENT: Normocephalic, atraumatic. Anicteric. Pupils equal, round, and reactive to light. Extraocu lar movements are intact. Oropharynx is clear. Neck: Supple. No masses. Respirations: Clear to auscultation bilaterally. Cardiac: Regular rate and rhythm. No gallops or rubs. Abdomen: Positive bowel sounds. Soft, nontender, nondistended. No hepatosplenomegaly. Extremities: No clubbing, cyanosis, or edema. 2+ pulses. Neuro: Times 3. Grossly nonfocal. 5/5 motor strength to light touch. Laboratory Data: Patient has a white count of 4.5, hemoglobin 11.4, hematocrit 34.5, MCV of 90, plat elet count 320, polys 90, lymphocytes 8, monocytes 2. Patient's sodium 140, potassium 4.4, chloride 109, bicarb 25, BUN of 29, creatinine of 0.8, glucose 175, calcium 9.1. Phosphorus 2.1, magnesium 2. 2. Total bilirubin 0.3, AST of 9, ALT of 18, alk phos 88, total protein 6.5, albumin 2.9. COVID-[address] abdomen and pelvis impression is 3 cm area of thickening, soft tissue noted in the right lateral, posterolateral aspect of the distal rectum at the anus. This could be a cyst consistent with rectal mass history. There is some diverticulosis with moderate stool seen in the co becka. Also, large hiatal hernia is noted to be present. Spinal stenosis changes are present in the m id lumbar versus spine, degenerative changes noted. 2/3 of the stomach is intrathoracic f racture, deformity of T12 noted as well. MRI shows chronic vertebral plane at L3 and advanced latera l recess stenosis at L3-L4, L4-5. Pending osteoporotic compression fracture of L4 suspected. Chest x-ray, mild to moderate COPD. She had a CT of the pelvis on the , the day before, which revealed a 3 cm rectal mass, which is not really clear is a true mass. Impression: 1.Rectal mass 3 cm in the rectum noted on CT pelvis on the and CT of the abdomen and pelvis on the . It is not clear. This is a discrete mass. It is suspected there is some soft tissue thic kening. Patient reports colonoscopy 10 to 20 years ago that was unremarkable. Patient denies any fe vers, chills, night sweats, change in weight, melena, hematochezia, change in bowel habits, or other. Of note, the patient also has moderate stool in the colon and diverticulosis. 2.Lower back pain due to L4 compression fracture, pending on MRI. The patient has other multiple de generative changes of the spine and probably contributed to her low back pain. 3.History of diabetes. 4.Hypertension. 5.Lumbar stenosis. 6.Moderate macular degeneration. 7.Bilateral knee replacements. 8.Right foot surgery. 9.Cataract surgery. 10.Hernia repair. Recommendations: 1.Colonoscopy inpatient and outpatient. 2.Constipation therapy. WS/MODL Voice ID: [id number] Report ID: [id number]
[2021-06-19 03:39] VITALS: BP 140/80; TEMP 98
--- NOTE | 2021-06-19 03:41 | P.DS ---
Discharge Date: 06/15/21 Disposition: ROUTINE DISCHARGE Discharge Condition: GOOD Reason for Admission: Low back pain Consultations: Gastroenterology - Problems (1) Diabetes mellitus Status: Acute Qualifiers: Diabetes mellitus type: type 2 Diabetes mellitus complication status: without complication (2) Dyspnea Onset Date: 07/05/14 Status: Acute (3) Hypertension Status: Acute Qualifiers: Hypertension type: essential hypertension (4) Lumbar compression fracture Status: Acute (5) Back pain Status: Acute (6) Colitis Status: Acute Brief History of Present Illness: Patient is an 89yo who came into the hospital with low back pain. Patient has been having pain since yesterday. Patient was found to have a mild lumbar fracture. Patient came back to the hospital because the pain was not improving. Patient decided to come into the emergency room once again. CT scan once again shows a compression fracture as well as lumbar fracture at L3. However, patient also has some thickening in the rectal region which appears to be a rectal mass. Patient will get a CT abdomen and pelvis in the morning. Patient will get a GI consultation as well. Patient may need outpatient colonoscopy. Continue with antibiotics as patient appears to have a colitis. Patient will be admitted for further evaluation. Hospital Course: Patient did well during hospital stay. MRI of the L-spine showed a 10% compression fracture. Patient going to follow with a pain specialist for this. Patient also had a questionable rectal mass that was evaluated with Gastroenterology in a dedicated CT of the pelvis. Patient will be discharged on antibiotics. At this time, patient is stable for discharge home with outpatient follow with a pain specialist as well as Gastroenterology. Vital Signs/Physical Exam: Temp Pulse Resp BP Pulse Ox 98 F 80 18 140/80 99 06/19/21 03:39 06/19/21 03:39 06/19/21 03:39 06/19/21 03:39 06/19/21 03:39 General: Alert, In no apparent distress, Oriented x3 Laboratory Data at Discharge: WBC 4.50 K/uL (4.3-10.9) 06/15/21 02:20 Hgb 11.4 g/dL (12.0-15.0) L 06/15/21 02:20 Hct 34.5 % (36.0-45.0) L 06/15/21 02:20 Plt Count 320 K/uL (152-406) 06/15/21 02:20 Sodium 140 mmol/L (136-145) 06/15/21 02:20 Potassium 4.4 mmol/L (3.5-5.1) 06/15/21 02:20 BUN 29 mg/dL (7-18) H 06/15/21 02:20 Creatinine 0.81 mg/dL (0.55-1.3) 06/15/21 02:20 Glucose 175 mg/dL (74-106) H 06/15/21 02:20 Phosphorus Cancelled 06/15/21 06:00 Magnesium Cancelled 06/15/21 06:00 Total Bilirubin 0.3 mg/dL (0.2-1.0) 06/15/21 02:20 AST 9 U/L (15-37) L 06/15/21 02:20 ALT 18 U/L (12-78) 06/15/21 02:20 Alkaline Phosphatase 88 U/L (45-117) 06/15/21 02:20 Home Medications: Acetaminophen [Tylenol Arthritis] 650 mg PO BID 07/30/16 Calcium Carbonate/Vitamin D3 [Caltrate 600 + D Tablet] 1 each PO BID 07/30/16 Fish Oil/Borage/Flax/Om3,6,9 1 [[place] 3-6-9 1,200 mg Softgel] 1,200 mg PO DAILY 07/30/16 Glimepiride [Amaryl] 0.5 mg PO DAILY 07/30/16 Ibandronate Sodium [Boniva] 150 mg PO ONCE 07/30/16 Lisinopril/Hydrochlorothiazide [Lisinopril-Hctz 10-12.5 mg Tab] 1 each PO DAILY 07/30/16 Multivit-Min/FA/Lycopen/Lutein [Centrum Silver Tablet] 1 each PO DAILY 07/30/16 [place]-3 Fatty Acids [Fish Oil] 300 mg PO DAILY 07/30/16 Vit A/Vit C/Vit E/Zinc/Copper [Icaps Areds Formula Tablet] 1 each PO DAILY 07/30/16 Hydrocodone 7.5/APAP 325 [[place] 7.5/325 mg*] 1 tab PO Q6H PRN #30 tab 06/15/21 Levofloxacin [Levaquin] 500 mg PO DAILY #7 tablet 06/15/21 metroNIDAZOLE [Flagyl] 500 mg PO Q8H #21 tablet 06/15/21 New Medications: metroNIDAZOLE [Flagyl] 500 mg PO Q8H #21 tablet Levofloxacin [Levaquin] 500 mg PO DAILY #7 tablet Hydrocodone 7.5/APAP 325 [[place] 7.5/325 mg*] 1 tab PO Q6H PRN #30 tab PRN Reason: Pain Scale 5-7 (Moderate) Physician Discharge Instructions: -DC IV and DC home -Follow-up with PCP in 1 to 2 weeks -Follow-up with in 1 to 2 weeks -Please call Dr. Salazar at [phone] if any questions regarding hospital stay -Please call nursing station at [phone] if any nursing or medication questions -Return to the emergency room if symptoms worsen Diet: AHA Activity: Fall precautions Followup: Randy Camacho DO, DO [Primary Care Provider] - (Call to schedule appointment) Time spent managing pt's care (in minutes): 35
== END 2021-06-15 21:00 | disposition home or self-care (01) ==
LOC: ER 08:34 → ERHOLD 12:52 → 2ND 06-15 11:38 → OBSVTOIN 06-15 14:30 → INTOOBSV 06-15 14:30
PROVIDERS: ADMIT Hospitalist; ATTEND Hospitalist
DX: M48.56XA Collapsed vertebra, not elsewhere classified, lumbar region, initial encounter for fracture (principal); K52.9 Noninfective gastroenteritis and colitis, unspecified; R93.5 Abnormal findings on diagnostic imaging of other abdominal regions, including retroperitoneum; E11.9 Type 2 diabetes mellitus without complications; I10 Essential (primary) hypertension; J44.9 Chronic obstructive pulmonary disease, unspecified; K57.90 Diverticulosis of intestine, part unspecified, without perforation or abscess without bleeding; M48.061 Spinal stenosis, lumbar region without neurogenic claudication; H35.30 Unspecified macular degeneration; Z20.822 Contact with and (suspected) exposure to COVID-19; Z96.653 Presence of artificial knee joint, bilateral; Z82.0 Family history of epilepsy and other diseases of the nervous system; Z80.41 Family history of malignant neoplasm of ovary
CPT/HCPCS: 85025; 36415; 83735; 84100; 80053; 72192; 74177; 71045; 72148; 96375; 96374; 99284; U0003; Q9967; J1100 ×4; J1170; J3010 ×3; J7030 ×3; J2930; J2405; G0378 ×3

== ENCOUNTER 2021-09-10 18:09 | Inpatient (IN) | payer MEDICARE, BC ==
--- OUTSIDE RECORDS SUMMARY | 2021-09-10 18:11 | XMS REPORT | Continuity of Care Document ---
:1930 Author Organization [facility] t Address [address] [place] [address] Care Team Providers Name Role Phone Zuleika Camacho Primary Care Physician SHAYE BLACKMAN Attending Clinician Unavailable Lyndsay ENGEL S Attending Clinician Shaye Andrade Attending Clinician Payers Payer Name Policy Type Policy Number Effective Date Expiration Date S ource ER/OBS/IP MEDICARE [id number] 1998 [facility] B ONLY [facility]:00[id number] 2017 00:00:00 Problems Condition Condition Condition Status Onset Resolution Last Treating Co mments Source Name Details Category Date Date Treatment Clinician Date Stress Stress Disease Active Univers incontinen incontinen 7-13 it y of ce ce 00:00: [place] [address] Medical Branch Low back Low back Disease Active Unive rs pain pain 7-13 ity of 00:00: [place] 00 [facility] Branch Muscular Muscular Disease Active Unive rs wasting wasting 7-13 ity of and disuse and dis[place] atrophy, atrophy, 00 Medica l not not Branch elsewhere elsewhere classified classified Postmenopa Postmenopa Disease Active U nivers usal usal 6-22 ity of atrophic atrophic 00:00: [place] vaginitis vaginitis 00 [facility] Branch Uterovagin Uterovagin Disease Active Overview : Univers al al 6-21 Formatt[place] ity of prolapse prolapse 00:00: g of this [place] as 00 note Medical might be Branch different from the original. ICD10 Diagnosis Term Manager [employer] Allergies, Adverse Reactions, Alerts Allergy Allergy Status Severity Reaction(s) Onset Inactive Treating Comm ents Source Name Type Date Date Clinician NO KNOWN Drug Active Univers ALLERGIE Class ity of S [place] [facility] Social History Social Habit Start Date Stop Date Quantity Comments Source Exposure to Not sure [facility] SARS-CoV-2 (event) Medica l Branch Alcohol intake 2021-06-19 2021-06-19 [facility] 00:00:00 00:00:00 [facility] Branch Sex Assigned At [birth year] [facility] 00:00:00 00:00:00 [facility] Branch Smoking Status Start Date Stop Date Source Never smoker [facility] Medications Ordered Filled Start Stop Current Ordering Indication Dosage Frequency Signature Comments Components Source Medication Medication Date Date Medication? Clinician (SIG) Name Name HYDROcodone 2021- No 1{tbl} 1 tablet, Univers -acetaminop 06-20 Oral, ity of hen (NORCO) 09:30: 08:31 [place] 1 [place] 10-325 mg 00 :00 dose, On Medica l tablet 1 e 06/20/21 Branc h tablet at 0330, Routine dextrose 50 2021- No 50mL 50 mL, Uni vers % in water 06-20 Intravenou it y of (D50W) 04:30: 03:25 s, ONCE, 1 [place] injection 00 :00 dose, On Medica l 50 mL Mon Branch 06/19/21 at 2230, STAT lisinopril- 2021- No 1{tbl} Take 1 Tab Univers hydrochloro 06-20 by mouth ity of thiazide 00:38: 00:00 daily. [place] (PRINZIDE,Z 19 :00 Medical ESTORETIC) Branch 10-12.5 mg per tablet glimepiride 2021- No 2mg Take 2 mg Univers (AMARYL) 2 06-20 by mouth ity of mg tablet 00:38: 00:00 daily with [place] 19 :00 breakfast. Medical Take 1/2 Branch tab daily omeprazole 2010-05 Yes 20mg Take 20 mg U nivers (PRILOSEC) 0-18 by mouth ity o f 20 mg 14:00: daily. [place] capsule [address] [place] [address] CALTRATE 2010-05 Yes Take by Univer s 600+D PLUS 0-18 mouth ity of MINERALS 14:00: daily. [place] ORAL [address] [place] [address] CENTRUM 2010-05 Yes Take by Univers ORAL 0-18 mouth ity of 14:00: daily. [address] EYE-CITLALY 2010-05 Yes Take by Univer s ORAL 0-18 mouth. ity of 14:00: [address] RISEDRONATE 2010-05 Yes Take by Un [place] SODIUM 0-18 mouth. ity of (ACTONEL 14:00: [place] ORAL) [address] [place] [address] estradiol 2010-05 Yes [id number] .5g Insert 0.5 Univers (ESTRACE) 0-18 g into ity of 0.01 % (0.1 00:00: vagina [place] mg/g) 00 every Medical vaginal other day Branch cream in the evening. Immunizations Ordered Filled Immunization Date Status Comments [facility] e Immunization Name Name SARS-COV-2 COVID-19 2020-07-23 Completed Unive rsity of MODERNA VACCINE 00:00:00 [facility] SARS-COV-2 COVID-19 2020-06-26 Completed Unive rsity of MODERNA VACCINE 00:00:00 [facility] Vital Signs Vital Name Observation Time Observation Value Comments Source Systolic blood 2021-06-20 08:00:00 113 mm[Hg] Univer sity of pressure [facility] Diastolic blood 2021-06-20 08:00:00 62 mm[Hg] Unive rsity of pressure [facility] Heart rate 2021-06-20 08:00:00 94 /min [facility] Respiratory rate 2021-06-20 08:00:00 20 /min [facility] Oxygen saturation in 2021-06-20 08:00:00 93 /min [facility] Arterial blood by [facility] Pulse oximetry Branch Body temperature 2021-06-20 00:26:00 36.44 Melanie [facility] Body weight 2021-06-20 00:26:00 83.915 kg [facility] Procedures Procedure Date / Time Performed Performing Clinician Jose e POCT GLUCOSE 2021-06-20 06:10:00 Simin Blackman [facility] (AUTOMATED) [facility] POCT GLUCOSE 2021-06-20 04:23:00 Arleen Umana [facility] (AUTOMATED) [facility] POCT GLUCOSE 2021-06-20 03:18:00 Arleen Umana [facility] (AUTOMATED) [facility] URINALYSIS 2021-06-20 01:56:00 Arleen Umana [facility] COMP. METABOLIC PANEL 2021-06-20 01:39:00 Arleen Umana [facility] ([id number]) [facility] CBC WITH DIFF 2021-06-20 01:39:00 Arleen Umana [facility] NOTICE OF PRIVACY 2021-06-20 00:34:13 Doctor Unassigned, No [facility] PRACTICES Name [facility] CONSENT/REFUSAL FOR 2021-06-20 00:33:25 Doctor Unassigned, No [facility] DIAGNOSIS AND Name [facility] TREATMENT Encounters Start End Encounter Admission Attending Care Care Encounter Source Date/Time Date/Time Type Type Clinicians Facility Department ID 2021-06-19 2021-06-20 Emergency X Simin BLACKMAN [facility] ERT [id number] Univers 18:23:00 02:44:00 [facility] [place] [facility] 2021-06-19 2021-06-20 Emergency Arleen Umana [facility] [id number] Univers 18:23:00 02:44:00 Simin Blackman [place] [id number] [facility] [id number] [facility] [id number] [address] Results Test Description Test Time Test Comments Results Result Comments Source POCT GLUCOSE (AUTOMATED) 2021-06-20 06:14:19 Test Item Value Reference Range Interpretation Comme nts POCT GLU (test code = 2828996541) 163 mg/dL 70-110 H Lab Interpretation (test code = 54988-0) [facility] 04:26:39 Test Item Value Reference Range Interpretation Comments POCT GLU (test code = 8120041770) 171 mg/dL 70-110 H Lab Interpretation (test code = Abnormal 85922-3) [facility] GLUCOSE (AUTOMATED)2021-06-20 03:19:57 Test Item Value Reference Range Interpretation Comments POCT GLU (test code = 3069969736) 43 mg/dL 70-110 LL Lab Interpretation (test code = Abnormal 34397-4) [facility]. METABOLIC PANEL (71749)2021-06-20 03:14:03 Test Item Value Reference Range Interpretation Comments NA (test code = 136 mmol/L 135-145 0833450252) K (test code = 4.2 mmol/L 3.5-5.0 0258201237) CL (test code = 106 mmol/L 98-108 4456232196) CO2 TOTAL (test code = 26 mmol/L 23-31 9847419232) AGAP (test code = 2-16 8357695434) BUN (test code = 48 mg/dL 7-23 H 3477340320) GLUCOSE (test code = 38 mg/dL 70-110 LL 8202869316) CREATININE (test code = 1.08 mg/dL 0.50-1.04 H 3855067214) TOTAL BILI (test code = 0.2 mg/dL 0.1-1.4 7460785594) CALCIUM (test code = 7.9 mg/dL 8.6-10.6 L 8937004587) T PROTEIN (test code = 5.0 g/dL 6.3-8.2 L 2169043718) ALBUMIN (test code = 3.0 g/dL 3.5-5.0 L 2434654479) ALK PHOS (test code = 76 U/L 34-122 8027355791) ALTv (test code = 17 U/L 5-35 1742-6) AST(SGOT) (test code = 27 U/L 13-40 4095258036) eGFR (test code = mL/min/1.73m2 0411747043) KELVIN (test code = KELVIN) Association of Glomerular Filtration Rate (GFR) and Staging of Kidney Disease* + --+ --+ ------+| GFR (mL/min/1.73 m2) ?| With Kidney Damage ?| ?Without Kidney Damage+ --------+ --------+ +| ?>90 ?| ?Stage one ?| ? Normal ?+ ---+ ---+ -------+| ?60-89 ?| ?Stage two ?| ? Decreased GFR ? + --+ --+ ------+| ?30-59 ?| ?Stage three ?| ? Stage three ? + --+ --+ ------+| ?15-29 ?| ?Stage four ? | ? Stage four ?+ ---+ ---+ -------+| ?<15 (or dialysis) ? ?| ?Stage five ? | ? Stage five ?+ ---+ ---+ -------+ *Each stage assumes the associated GFR level has been in effect for at least three months. ?Stages 1 to 5, with or without kidney disease, indicate chronic kidney disease. Notes: Determination of stages one and two (with eGFR >59mL/min/1.73 m2) requires estimation of kidney damage for at least three months as defined by structural or functional abnormalities of the kidney, manifested by either:Pathological abnormalities or Markers of kidney damage (including abnormalities in the composition of the blood or urine or abnormalities in imaging tests). Lab Interpretation Abnormal (test code = 36221-3) [facility] WITH [id number] 02:01:08 Test Item Value Reference Range Interpretation Comments WBC (test code = See_Comment H [Automated 2090-2) message] The sy stem which generated this result transmitted reference range : 4.30 - 11.10 10*3/?L. The reference range was not used to interpret this result as normal/abnormal . RBC (test code = See_Comment L [Automated 789-8) message] The sy stem which generated this result transmitted reference range : 3.93 - 5.25 10*6/?L. The reference range was not used to interpret this result as normal/abnormal . HGB (test code = 10.3 g/dL 11.6-15.0 L 718-7) HCT (test code = 31.4 % 35.7-45.2 L 4544-3) MCV (test code = 90.8 fL 80.6-95.5 787-2) MCH (test code = 29.8 pg 25.9-32.8 785-6) MCHC (test code = 32.8 g/dL 31.6-35.1 786-4) RDW-SD (test code = 41.8 fL 39.0-49.9 72167-4) RDW-CV (test code = 12.8 % 12.0-15.5 788-0) PLT (test code = See_Comment [Automated 777-3) message] The sy stem which generated this result transmitted reference range : 166 - 358 10*3/ ?L. The reference r ebony was not used to interpret this result as normal/abnormal . MPV (test code = 9.0 fL 9.5-12.9 L 98371-1) NRBC/100 WBC (test See_Comment [Automat ed code = 0559040232) message] The system which generated this result transmitted reference range : 0.0 - 10.0 /100 WBCs. The refer ence range was not u sed to interpret th is result as normal/abnormal . NRBC x10^3 (test code <0.01 See_Comment [Auto mated = [id number]) message] The s ystem which generated this result transmitted reference range : 10*3/?L. The reference range was not used to interpret this result as normal/abnormal . GRAN MAT (NEUT) % 84.9 % (test code = 770-8) IMM GRAN % (test code 1.00 % = 9144161893) LYMPH % (test code = 6.9 % 736-9) MONO % (test code = 6.0 % 5905-5) EOS % (test code = 0.9 % 713-8) BASO % (test code = 0.3 % 706-2) GRAN MAT x10^3(ANC) 9.50 10*3/uL 1.88-7.09 H (test code = 0963046262) IMM GRAN x10^3 (test 0.11 10*3/uL 0.00-0.06 H code = 5707277083) LYMPH x10^3 (test code 0.77 10*3/uL 1.32-3.29 L = 731-0) MONO x10^3 (test code 0.67 10*3/uL 0.33-0.92 = 742-7) EOS x10^3 (test code = 0.10 10*3/uL 0.03-0.39 711-2) BASO x10^3 (test code 0.03 10*3/uL 0.01-0.07 = 704-7) Lab Interpretation Abnormal (test code = 36500-6) [facility]"
[2021-09-10] MEDS ORDERED: NALOXONE HCL 2 MG/2 ML VIAL ONE (18:16)
[2021-09-10] MEDS ORDERED: D10W 250 ML IV ONE ×3 (18:16→22:09)
--- NOTE | 2021-09-10 18:37 | RAD REPORT ---
EXAM DESCRIPTION: CT - Ct Stroke Brain Wo Cont - 09/10/2021 6:28 pm CLINICAL HISTORY: altered mental status COMPARISON: No comparisons TECHNIQUE: Axial 5 millimeter thick images of the head were obtained without IV contrast. All CT scans are performed using dose optimization technique as appropriate and may include automated exposure control or mA/KV adjustment according to patient size. FINDINGS: No intracranial hemorrhage, mass, or cerebral edema. No cortical based infarction. No mohan ical edema or sulcal effacement. No extra-axial fluid collections. Hauser matter-white matter differen tiation is preserved.Mild for age atrophy changes are present. Ventricles are in proportion to the vo lume loss. Advanced chronic ischemic changes are seen in the cerebral white matter with minimal invol vement of the basal ganglia and thalamus tissues. Arterial tree calcifications are present. Visualized portions of the mastoid air cells, paranasal sinuses, and orbits are unremarkable. Findings telephoned to Dr Farley at 6:31 p.m. IMPRESSION: No CT evidence of acute intracranial process. Mild for age atrophy and advanced cerebral white matter chronic ischemic changes are present. Chronic ischemic changes can mask nonhemorrhagic acute infarction. MR brain followup can be obtained if there is ongoing concern for acute ischemia.
[2021-09-10 18:59] LABS: Urine Blood Negative (Negative); Urine Glucose Negative (Negative); Urine Protein Negative (Negative)
[2021-09-10 19:04] LABS: Absolute Lymphocytes (CBC) 0.6 K/uL (0.7-4.9); Hematocrit 28.3 % (36.0-45.0); Lymphocytes % 8.2 % (15.3-44.8); MPV 7.1 fL (7.6-11.3); RBC Red Blood Cell Count 3.16 M/uL (3.86-4.86)
[2021-09-10 19:05] LABS: Protime INR 0.96
[2021-09-10 19:28] LABS: ALT/SGPT 17 U/L (12-78); AST/SGOT 19 U/L (15-37); Albumin 3.2 g/dL (3.4-5.0); Alkaline Phosphatase 65 U/L (45-117); BUN Blood Urea Nitrogen 57 mg/dL (7-18); Bicarbonate 24 mmol/L (21-32); Bilirubin Total 0.2 mg/dL (0.2-1.0); Glucose Level 139 mg/dL (74-106); Magnesium 2.4 mg/dL (1.8-2.4); NT PRO-BNP 1047 pg/mL (<450); Potassium 4.7 mmol/L (3.5-5.1); Protein, Total 6.7 g/dL (6.4-8.2); Sodium Level 130 mmol/L (136-145); Troponin High Sensitivity 15.3 pg/mL (<58.9)
[2021-09-10 19:32] LABS: Bilirubin Direct < 0.1 mg/dL (0-0.2)
[2021-09-10 19:34] LABS: Barbiturates NEGATIVE (NEGATIVE); Benzodiazepines NEGATIVE (NEGATIVE); Cocaine NEGATIVE (NEGATIVE); METHAMPHETAM NEGATIVE (NEGATIVE); Methadone NEGATIVE (NEGATIVE); Opiates POSITIVE (NEGATIVE); Phencyclidine NEGATIVE (NEGATIVE); THC Cannibis NEGATIVE (NEGATIVE)
--- NOTE | 2021-09-10 19:46 | RAD REPORT ---
EXAM DESCRIPTION: RAD - Chest Single View - 09/10/2021 7:08 pm CLINICAL HISTORY: AMS COMPARISON: CT imaging 06/15/2021, single-view chest 06/14/2021 TECHNIQUE: AP portable chest image was obtained 09/10/2021 7:08 pm . FINDINGS: Lung volumes are very low which accentuates the lung parenchymal pattern. Patient has a ba seline fibrosis. Low lung volumes could mask early edema or infiltrate. No dense consolidation. Large hiatal hernia is present in the low midline chest. Heart size within range of normal. Trachea is mid line. No measurable pleural effusion and no pneumothorax. No acute bony abnormality seen. No acute ao rtic findings suspected. IMPRESSION: Limited portable study without acute cardiopulmonary finding peer Patient has a baseline interstitial fibrotic pattern which is accentuated by low lung volumes. This c ould mask an early interstitial edema or infiltrate.
--- NOTE | 2021-09-10 20:32 | ER ---
Nurse's Notes [facility] Name: Kay Patten Age: 89 yrs Sex: Female : 1930 Arrival Date: 09/10/2021 Time: 18:10 Bed 5 Private MD: Diagnosis: Acute kidney failure, unspecified;Drug-induced hypoglycemia without coma;Anemia, unspecified Presentation: 09/10 18:10 Chief complaint: EMS states: Family reported that patient began to become lethargic, ss leaning over in wheelchair and having slurred speech about 40 minutes ago. EMS reports that initial BP was 74/35, BGL 71. Pt reportedly took a [place] tablet at 1700 as prescribed. Coronavirus screen: Client denies travel out of the [place] in the last 14 days. Ebola Screen: Patient denies exposure to infectious person. Patient denies travel to an Ebola-affected area in the 21 days before illness onset. Initial Sepsis Screen: Does the patient meet any 2 criteria? No. Patient's initial sepsis screen is negative. Does the patient have a suspected source of infection? No. Patient's initial sepsis screen is negative. Risk Assessment: Do you want to hurt yourself or someone else? Patient reports no desire to harm self or others. Onset of symptoms was September 10, 2021 at 17:40. 18:10 Method Of Arrival: EMS: [facility] ss 18:10 Acuity: SALONI 1 ss 18:10 An acute neurological deficit is present. The patients blood glucose was checked before ss arriving to the hospital and was found to be hypoglycemic. 18:10 Care prior to arrival: IV initiated. 20 GA, in the left forearm, Glucose check: 71. ss Stroke Activation: Symptom onset < 3 hours Physician: Stroke Attending; Name: ; Notified At: ; Arrived At: Physician: Chief Stroke Resident; Name: ; Notified At: ; Arrived At: Physician: Stroke Resident; Name: ; Notified At: ; Arrived At: Physician: ED Attending; Name: ; Notified At: ; Arrived At: Physician: ED Resident; Name: ; Notified At: ; Arrived At: Historical: - Allergies: 18:26 No Known Allergies; ss - Home Meds: 20:16 lisinopril 20 mg Oral tab 1 tab once daily [Active]; glimepiride 2 mg Oral tab 0.5 tab vc1 twice a day [Active]; furosemide 40 mg Oral tab 1 tab once daily [Active]; gabapentin 100 mg oral tab 2 Tab twice a day [Active]; omeprazole 10 mg Oral cpDR 10 mg once daily [Active]; [place] 7.5-325 mg Oral tab 1 tab every 6 hours [Active]; Bactrim DS 800-160 mg Oral tab 1 tab every 12 hours [Active]; - PMHx: 18:26 Diabetes - NIDDM; Hypertension; ss - Immunization history:: Adult Immunizations unknown. - Social history:: Smoking status: unknown. Screenin:32 Abuse screen: Denies threats or abuse. Denies injuries from another. Nutritional ss screening: No deficits noted. Tuberculosis screening: Never had TB. 19:08 Fall Risk Fall in past 12 months (25 points). No secondary diagnosis (0 pts). IV access vg1 (20 points). Ambulatory Aid- Crutches/Cane/Walker (15 pts). Gait- Weak (10 pts.). Mental Status- Oriented to own ability (0 pts). Total Hill Fall Scale indicates High Risk Score (45 or more points). Fall prevention measures have been instituted. Side Rails Up X 2 Placed Close to Nursing Station Family Present and informed to notify staff if the need to leave the bedside. Assessment: 18:11 Reassessment: Unable to complete stroke scale. ss 18:15 Reassessment: Code stroke called. ss 18:23 Reassessment: transported to CT. vg1 19:00 General: Appears in no apparent distress. comfortable, Behavior is calm, cooperative. vg1 Pain: Denies pain. Neuro: Level of Consciousness is awake, alert, obeys commands, Oriented to person, place, time, situation. Cardiovascular: Patient's skin is warm and dry. Respiratory: Airway is patent Respiratory effort is even, unlabored. GI: Patient currently denies abdominal pain, nausea. : Urine is clear. EENT: No signs and/or symptoms were reported regarding the EENT system. Derm: Skin is intact, Skin is pink, warm \T\ dry. Musculoskeletal: Circulation, motion, and sensation intact. 20:45 Reassessment: Patient and/or family updated on plan of care and expected duration. Pain ll3 level reassessed. Patient is alert, oriented x 3, equal unlabored respirations, skin warm/dry/pink. Patient denies pain at this time. 22:25 Reassessment: Pt states something is under her bottom, repositioned, tolerated well. ll3 22:25 VAN Scoring: Arm Drift: Patients demonstrates NO arm weakness. Patient is VAN Negative. ll3 Visual Disturbance: No visual disturbance noted. Aphasia: No aphasia noted. Neglect: No neglect noted. Patient has been NPO before screening. The patient is alert, and able to follow commands. The patient does not exhibit slurred or garbled speech. The patient is not exhibiting difficulty speaking. The patient does not exhibit difficulty understanding words. The patient is able to swallow own secretions with no drooling or need for suction. Patient tolerated one teaspoon of water. No drooling, immediate coughing, gurgling, or clearing of the throat was noted. The patient tolerated 90mL of water. No drooling, immediate coughing, gurgling, or clearing of the throat was noted. The patient passed the bedside swallow screening. Oral medications may be given as ordered. Contact Physician for further diet orders. Provider notified of bedside swallow screening results: Freddie Parmar MD. 09/11 01:43 Reassessment: Patient and/or family updated on plan of care and expected duration. Pain ll3 level reassessed. Patient is alert, oriented x 3, equal unlabored respirations, skin warm/dry/pink. Pt is awake and alert in bed eating a sandwich, denies any discomfort at this time, call light within reach. Patient denies pain at this time. Vital Signs: 09/10 18:10 BP 90 / 44; Pulse 72; Resp 12; Temp 96.7(TE); Pulse Ox 98% on R/A; ss 19:00 BP 143 / 69; Pulse 82; Resp 17; Pulse Ox 100% on R/A; ll3 20:00 BP 102 / 56; Pulse 69; Resp 13; Pulse Ox 99% on R/A; ll3 21:00 BP 104 / 56; Pulse 63; Resp 12; Pulse Ox 100% on R/A; ll3 22:00 BP 104 / 54; Pulse 70; Resp 17; Pulse Ox 100% on R/A; ll3 23:00 BP 104 / 51; Pulse 67; Resp 12; Pulse Ox 100% on R/A; ll3 09/11 00:00 BP 93 / 49; Pulse 74; Resp 16; Pulse Ox 100% on R/A; ll3 01:42 BP 114 / 47; Pulse 88; Resp 14; Pulse Ox 100% on R/A; ll3 ED Course: 09/10 18:10 Patient arrived in ED. ss 18:16 Luis Alberto Brown PA is PHCP. cp 18:16 Morales Farley MD is Attending Physician. cp 18:26 Triage completed. ss 18:26 Arm band placed on right wrist. ss 18:30 CT Stroke Brain w/o Contrast In Process Unspecified. EDMS 18:49 Patient has correct armband on for positive identification. Placed in gown. Bed in low ss position. Call light in reach. Side rails up X2. Adult w/ patient. conveyor monitor on. Pulse ox on. NIBP on. Warm blanket given. 18:50 Straight cath inserted, using sterile technique, 16 Fr. Specimen obtained. vg1 18:54 EKG done, by ED staff, reviewed by Luis Alberto MOON. mb7 19:00 Dena Chin, RN is Primary Nurse. vg1 19:00 UDS Sent. ld1 19:05 Freddie Parmar MD is Attending Physician. cp 19:09 XRAY Chest (1 view) In Process Unspecified. EDMS 19:30 Primary Nurse role handed off by Dena Chin RN mw2 20:31 Morales Salazar MD is Hospitalizing Provider. cp 21:07 Daja Marinelli RN is Primary Nurse. ll3 22:25 No provider procedures requiring assistance completed. ll3 Administered Medications: 09/11 01:40 Discontinued: Dextrose 10 % in Water 250 ml IV at 75 ml continuous ll3 09/10 18:13 Drug: d10 250 ml Route: IV; Rate: calculated rate; Site: left forearm; ss 18:14 Drug: NARcan (naloxone) 0.5 mg Route: IVP; Site: left forearm; ss 18:32 CANCELLED (Duplicate Order): NARcan (naloxone) 0.4 mg IVP once ss 20:15 Drug: d10 250 ml Route: IV; Rate: 75 ml/hr; Site: left forearm; vc1 20:50 Drug: Rocephin - (cefTRIAXone) 1 grams Route: IVPB; Infused Over: 30 mins; Site: left ll3 antecubital; 21:26 Follow up: Response: No adverse reaction; IV Status: Completed infusion; IV Intake: 20sqwq1 22:01 CANCELLED (Physician Discretion): Dextrose 10 %-0.45 % NaCl 75 ml/hr IV at ml/hr once sb3 22:07 Drug: Dextrose 10 %-0.45 % NaCl 250 ml {Note: Drug come as D10W..} Route: IV; Rate: ll3 bolus; Site: left forearm; 22:42 Follow up: Response: No adverse reaction; IV Status: Completed infusion; IV Intake: ll3 250ml 22:49 Drug: Dextrose 10 % in Water 250 ml {Note: Comes in as D10W..} Route: IV; Rate: 75 ml; ll3 Site: left forearm; 09/11 01:42 Drug: Dextrose 10 % in Water 250 ml Route: IV; Rate: 100 ml/hr; Site: right forearm; ll3 Intake: 09/10 21:26 IV: 50ml; Total: 50ml. ll3 22:42 IV: 250ml; Total: 300ml. ll3 Outcome: 20:31 Decision to Hospitalize by Provider. cp 09/11 04:09 Admitted to Med/surg accompanied by nurse, via stretcher. ll3 Condition: good 04:10 Patient left the ED. ll3 Signatures: Dispatcher [employer] EDMS Babita Barbosa, RN RN Luis Alberto Walker PA PA cp Phill Persaud mw2 Dena Chin RN RN vg1 Nichole Comer RN RN marco a1 Daja Marinelli RN RN ll3 Helen Dickens mb7 Pearl Lombardi RN RN Evelyn Morales sb3 Corrections: (The following items were deleted from the chart) 09/10 22:25 21:00 Reassessment: Pt states something is under her bottom, repositioned, tolerated ll3 well. ll3 22:31 22:29 The onset of the patients symptoms was ll3 ll3 09/11 01:43 09/10 23:00 BP 93 / 49; Pulse 74bpm; Resp 16bpm; Pulse Ox 100% RA; ll3 ll3
--- NOTE | 2021-09-10 20:32 | EDPHYS ---
Physician Documentation [facility] Name: Kay Patten Age: 89 yrs Sex: Female : 1930 Arrival Date: 09/10/2021 Time: 18:10 Bed 5 Private MD: ED Physician Freddie Parmar HPI: 09/10 18:20 This 89 yrs old Female presents to ER via EMS with complaints of Low Blood Sugar, cp Unresponsive, S/S of Possible Stroke. 18:20 The patient presents with decreased responsiveness, slurred speech. cp 18:20 Onset: The symptoms/episode began/occurred suddenly, about 40 minutes prior to arrival. cp Possible causes: possible stroke. Associated signs and symptoms: Pertinent positives: confusion, weakness, Pertinent negatives: abdominal pain, chest pain, combativeness, headache, seizure. Current symptoms: In the emergency department the patient's symptoms have worsened, markedly, is less alert. Patient's baseline: Neuro: alert and fully oriented, Motor: no deficits, Ambulation: walks without assistance, Speech: normal. Unable to obtain HPI due to altered mental status. Historical: - Allergies: 18:26 No Known Allergies; ss - Home Meds: 20:16 lisinopril 20 mg Oral tab 1 tab once daily [Active]; glimepiride 2 mg Oral tab 0.5 tab vc1 twice a day [Active]; furosemide 40 mg Oral tab 1 tab once daily [Active]; gabapentin 100 mg oral tab 2 Tab twice a day [Active]; omeprazole 10 mg Oral cpDR 10 mg once daily [Active]; [place] 7.5-325 mg Oral tab 1 tab every 6 hours [Active]; Bactrim DS 800-160 mg Oral tab 1 tab every 12 hours [Active]; - PMHx: 18:26 Diabetes - NIDDM; Hypertension; ss - Immunization history:: Adult Immunizations unknown. - Social history:: Smoking status: unknown. ROS: 18:25 Constitutional: Negative for fever. cp 18:25 Cardiovascular: Negative for chest pain. cp 18:25 Unable to obtain ROS due to altered mental status. Exam: 18:25 ECG was reviewed by the Attending Physician. cp 18:30 Constitutional: The patient appears non-diaphoretic, non-toxic, well developed, well cp nourished, in obvious distress, mildly distressed. 18:30 Head/Face: Normocephalic, atraumatic. cp 18:30 Eyes: Periorbital structures: appear normal, Pupils: pinpoint, bilaterally, Conjunctiva: normal, no exudate, no injection, Sclera: no appreciated abnormality, Lids and lashes: appear normal, bilaterally. 18:30 ENT: External ear(s): are unremarkable, Nose: is normal, Mouth: Lips: moist, Oral mucosa: moist, Posterior pharynx: Airway: no evidence of obstruction, patent. 18:30 Chest/axilla: Inspection: normal. 18:30 Cardiovascular: Rate: normal, Rhythm: regular, Edema: is not appreciated, JVD: is not appreciated. 18:30 Respiratory: mild respiratory distress is noted, Respirations: shallow respirations, that is mild, Breath sounds: are clear throughout, no decreased breath sounds, no stridor, no wheezing. 18:30 Abdomen/GI: Inspection: abdomen appears normal, Bowel sounds: active, all quadrants, Palpation: abdomen is soft and non-tender, in all quadrants. 18:30 Skin: cellulitis, is not appreciated, no rash present. 18:30 Neuro: Orientation: Not oriented to person, place, situation, Mentation: unable to follow commands, responsive to pain. Vital Signs: 18:10 BP 90 / 44; Pulse 72; Resp 12; Temp 96.7(TE); Pulse Ox 98% on R/A; ss 19:00 BP 143 / 69; Pulse 82; Resp 17; Pulse Ox 100% on R/A; ll3 20:00 BP 102 / 56; Pulse 69; Resp 13; Pulse Ox 99% on R/A; ll3 21:00 BP 104 / 56; Pulse 63; Resp 12; Pulse Ox 100% on R/A; ll3 22:00 BP 104 / 54; Pulse 70; Resp 17; Pulse Ox 100% on R/A; ll3 23:00 BP 104 / 51; Pulse 67; Resp 12; Pulse Ox 100% on R/A; ll3 09/11 00:00 BP 93 / 49; Pulse 74; Resp 16; Pulse Ox 100% on R/A; ll3 01:42 BP 114 / 47; Pulse 88; Resp 14; Pulse Ox 100% on R/A; ll3 MDM: 09/10 18:26 Patient medically screened. cp 20:30 Data reviewed: vital signs, nurses notes, lab test result(s), EKG, radiologic studies, cp CT scan, plain films. 20:30 Test interpretation: by ED physician or midlevel provider: ECG, plain radiologic cp studies. Counseling: I had a detailed discussion with the patient and/or guardian regarding: the historical points, exam findings, and any diagnostic results supporting the discharge/admit diagnosis, lab results, radiology results, the need for further work-up and treatment in the hospital. Response to treatment: the patient's symptoms have markedly improved after treatment, and as a result, I will admit patient. 20:30 Physician consultation: Evelyn MOON was contacted at 20:30, regarding admission, to the telemetry unit. patient's condition. 09/10 18:18 Order name: Basic Metabolic Panel; Complete Time: 19:34 09/10 19:34 Interpretation: Normal except: NA 130; GLUC 139; BUN 57; CRE 2.58; GFR 17. 09/10 18:18 Order name: CBC with Diff; Complete Time: 19:17 09/10 19:17 Interpretation: Normal except: RBC 3.16; HGB 9.5; HCT 28.3; MPV 7.1; ERIC% 84.4; LYM% cp 8.2; LYMA 0.6. 09/10 18:18 Order name: LFT's; Complete Time: 19:34 09/10 20:22 Interpretation: Normal except: ALB 3.2; A/G 0.9. 09/10 18:18 Order name: Magnesium; Complete Time: 19:34 09/10 18:18 Order name: NT PRO-BNP; Complete Time: 19:34 09/10 18:18 Order name: PT-INR; Complete Time: 19:17 09/10 18:18 Order name: Troponin HS; Complete Time: 19:34 09/10 19:48 Interpretation: Reviewed. 09/10 18:18 Order name: UDS; Complete Time: 19:47 09/10 19:47 Interpretation: Normal except: OPI POSITIVE. 09/10 18:18 Order name: Lactate; Complete Time: 19:34 09/10 20:22 Interpretation: Abnormal: LAC 2.3. 09/10 18:18 Order name: Procalcitonin; Complete Time: 20:21 cp 09/10 18:18 Order name: Blood Culture Adult (2) 09/10 18:36 Order name: SARS-COV-2 RT PCR (Document "Date of Onset" if Symptomatic); Complete Time: eb 22:30 09/10 22:30 Interpretation: Reviewed. 09/10 18:18 Order name: XRAY Chest (1 view); Complete Time: 19:47 09/10 19:48 Interpretation: Report review. 09/10 18:18 Order name: CT Stroke Brain w/o Contrast; Complete Time: 19:17 cp 09/10 18:54 Order name: Glucose, Ancillary Testing; Complete Time: 19:17 EDMS 09/10 18:59 Order name: Urine Dipstick-Ancillary; Complete Time: 19:17 EDMS 09/10 19:06 Order name: Acetaminophen Level; Complete Time: 19:34 EDMS 09/10 20:17 Order name: Glucose, Ancillary Testing; Complete Time: 20:21 EDMS 09/10 20:23 Order name: Urine Microscopic Only; Complete Time: 21:24 cp 09/10 21:58 Order name: Glucose, Ancillary Testing; Complete Time: 21:59 EDMS 09/10 22:34 Order name: Lactate Sepsis 2 HR Follow-up; Complete Time: 22:44 EDMS 09/10 22:48 Order name: Glucose, Ancillary Testing; Complete Time: 23:50 EDMS 09/11 00:08 Order name: Glucose, Ancillary Testing; Complete Time: 00:19 EDMS 09/11 01:29 Order name: Glucose, Ancillary Testing; Complete Time: 01:32 EDMS 09/11 02:38 Order name: Glucose, Ancillary Testing EDMS 09/11 03:29 Order name: CBC with Automated Diff EDMS 09/11 03:41 Order name: Glucose, Ancillary Testing EDMS 09/11 04:09 Order name: Hemoglobin A1c EDMO 09/10 18:18 Order name: EKG; Complete Time: 18:19 cp 09/10 18:18 Order name: Cardiac monitoring; Complete Time: 18:31 cp 09/10 18:18 Order name: EKG - Nurse/Tech; Complete Time: 18:31 cp 09/10 18:18 Order name: IV Saline Lock; Complete Time: 18:31 cp 09/10 18:18 Order name: Labs collected and sent; Complete Time: 18:32 cp 09/10 18:18 Order name: O2 Per Protocol; Complete Time: 18:32 cp 09/10 18:18 Order name: O2 Sat Monitoring; Complete Time: 18:32 cp 09/10 18:18 Order name: [place]; Complete Time: 19:08 cp EC:25 Rate is 73 beats/min. Rhythm is regular. NH interval is prolonged at 304 msec. QRS cp interval is normal. QT interval is normal. T waves are Inverted in leads I, aVL. Interpreted by me. Reviewed by me. Administered Medications: 09/11 01:40 Discontinued: Dextrose 10 % in Water 250 ml IV at 75 ml continuous ll3 09/10 18:13 Drug: d10 250 ml Route: IV; Rate: calculated rate; Site: left forearm; ss 18:14 Drug: NARcan (naloxone) 0.5 mg Route: IVP; Site: left forearm; ss 18:32 CANCELLED (Duplicate Order): NARcan (naloxone) 0.4 mg IVP once ss 20:15 Drug: d10 250 ml Route: IV; Rate: 75 ml/hr; Site: left forearm; vc1 20:50 Drug: Rocephin - (cefTRIAXone) 1 grams Route: IVPB; Infused Over: 30 mins; Site: left ll3 antecubital; 21:26 Follow up: Response: No adverse reaction; IV Status: Completed infusion; IV Intake: [id number] 22:01 CANCELLED (Physician Discretion): Dextrose 10 %-0.45 % NaCl 75 ml/hr IV at ml/hr once sb3 22:07 Drug: Dextrose 10 %-0.45 % NaCl 250 ml {Note: Drug come as D10W..} Route: IV; Rate: ll3 bolus; Site: left forearm; 22:42 Follow up: Response: No adverse reaction; IV Status: Completed infusion; IV Intake: ll3 250ml 22:49 Drug: Dextrose 10 % in Water 250 ml {Note: Comes in as D10W..} Route: IV; Rate: 75 ml; ll3 Site: left forearm; 09/11 01:42 Drug: Dextrose 10 % in Water 250 ml Route: IV; Rate: 100 ml/hr; Site: right forearm; ll3 Disposition: 06:16 Co-signature as Attending Physician, Freddie Parmar MD I agree with the assessment and kdr plan of care. Disposition Summary: 09/10/21 20:31 Hospitalization Ordered Hospitalization Status: Observation cp Provider: Morales Salazar cp Location: Telemetry/MedSurg (observation) cp Condition: Stable cp Problem: new cp Symptoms: have improved cp Bed/Room Type: Standard cp Room Assignment: 205(09/10/21 22:10) mw Diagnosis - Acute kidney failure, unspecified cp - Drug-induced hypoglycemia without coma cp - Anemia, unspecified cp Forms: - Medication Reconciliation Form cp - SBAR form cp Signatures: Dispatcher [employer] EDMS Oanh Jeffrey RN RN Freddie Parmar MD MD kdr Babita Barbosa RN RN ss Luis Alberto Brown PA PA cp Daja Marinelli RN RN ll3 Pearl Lombardi RN RN vc1 Evelyn Barroso PA PA sb3 Corrections: (The following items were deleted from the chart) 09/10 18:32 18:18 NARcan (naloxone) 0.4 mg IVP once ordered. cp ss 19:06 18:45 ACETAMINOPHEN+C.LAB.BRZ ordered. EDMS EDMS 19:08 18:45 SALICYLATE+C.LAB.BRZ ordered. EDMS EDMS 19:47 19:47 Normal except. cp cp 22:01 21:59 Dextrose 10 %-0.45 % NaCl 75 ml/hr IV at ml/hr once ordered. sb3 sb3 22:10 20:31 cp mw
[2021-09-10] MEDS ORDERED: CEFTRIAXONE 1000 MG/VIAL ONE (20:42)
[2021-09-10] MEDS ORDERED: NA CHLORIDE 0.9% 50 ML ONE (20:42)
[2021-09-10 20:52] LABS: Urine Bacteria <20 /HPF (<20); Urine RBC <5 /HPF (NONE SEEN); Urine Urothelial Cells <5 /HPF (NONE SEEN)
--- NOTE | 2021-09-10 22:41 | P.HP ---
Certification for Inpatient Patient admitted to: Inpatient With expected LOS: >2 Midnights Patient will require the following post-hospital care: None Practitioner: I am a practitioner with admitting privileges, knowledge of patient current condition, hospital course, and medical plan of care. Services: Services provided to patient in accordance with Admission requirements found in Title 42 Section 412.3 of the Code of Federal Regulations Patient History Date of Service: 09/11/21 Primary Care Provider: Janice Reason for admission: Hypoglycemia, ABDIFATAH History of Present Illness: Patient is an 89-year-old female with past medical history of type 2 diabetes [id number], hypertension, CHF, CKD2 who presented to the ED via EMS with signs and symptoms of a stroke. EMS reported that family called because patient was lethargic, leaning over in her wheelchair, and slurring speech. EMS initial blood pressure was 74/35 and BGL 71. Patient also had recently taken a [place] as prescribed. A code stroke was initially called. She was given 250 mL of D10 and Narcan. Patient then became more alert. Head CT negative for acute intracranial process. Labs significant for sodium of 130, creatinine 2.58, BUN 57, GFR 17, hemoglobin 9.5, lactic acid 2.3. Her blood sugar improved to 132 after D10 however it later dropped to 58. She was put on D10 @ 75 cc and glucose remained low at 49. Another D10 250 bolus and it went up to 91. Then on D10 @ 75 cc/hr it went back down to 44. Hospital does not currently have any D50. Upon my assessment, patient is asymptomatic, oriented x3 and complaining of no pain. She states her blood sugars have gotten low before but not quite this low. She has not been checking her blood sugar as regularly as she used to. She does not think that she has been eating or drinking any less than usual and reports taking her medications regularly. She has been taking Bactrim for recent UTI. Will admit patient for further evaluation and treatment. Allergies No Known Allergies Allergy (Verified 08/03/16 07:07) Home medications list reviewed: Yes Home Medications: Acetaminophen [Tylenol Arthritis] 650 mg PO BID 07/30/16 Calcium Carbonate/Vitamin D3 [Caltrate 600 + D Tablet] 1 each PO BID 07/30/16 Fish Oil/Borage/Flax/Om3,6,9 1 [[place] 3-6-9 1,200 mg Softgel] 1,200 mg PO DAILY 07/30/16 Glimepiride [Amaryl] 0.5 mg PO DAILY 07/30/16 Ibandronate Sodium [Boniva] 150 mg PO ONCE 07/30/16 Lisinopril/Hydrochlorothiazide [Lisinopril-Hctz 10-12.5 mg Tab] 1 each PO DAILY 07/30/16 Multivit-Min/FA/Lycopen/Lutein [Centrum Silver Tablet] 1 each PO DAILY 07/30/16 [place]-3 Fatty Acids [Fish Oil] 300 mg PO DAILY 07/30/16 Vit A/Vit C/Vit E/Zinc/Copper [Icaps Areds Formula Tablet] 1 each PO DAILY 07/30/16 Hydrocodone 7.5/APAP 325 [[place] 7.5/325 mg*] 1 tab PO Q6H PRN #30 tab 06/15/21 Levofloxacin [Levaquin] 500 mg PO DAILY #7 tablet 06/15/21 metroNIDAZOLE [Flagyl] 500 mg PO Q8H #21 tablet 06/15/21 - Past Medical/Surgical History Diabetic: Yes -: hypertension -: Type 2 diabetes- non insulin dependent -: lumbar stenosis -: macular degeneration -: CHF -: CKD2 -: knee replacement bilateral -: bladder suspension -: right foot surgery -: cataract removal -: hernia repair Psychosocial/ Personal History: Patient lives at home with her . - Family History Father -: Other (see notes) Notes: Alzheimer's - Social History Smoking Status: Never smoker Alcohol use: No CD- Drugs: No Caffeine use: No Place of Residence: Home Review of Systems Unremarkable Physical Examination - Physical Exam General: Alert, In no apparent distress, Oriented x3 HEENT: Atraumatic, PERRLA, EOMI, Sclerae nonicteric Neck: Supple, 2+ carotid pulse no bruit, No LAD, Without JVD or thyroid abnormality Respiratory: Clear to auscultation bilaterally, Normal air movement Cardiovascular: Regular rate/rhythm, Normal S1 S2 Gastrointestinal: Normal bowel sounds, No tenderness Musculoskeletal: No tenderness Integumentary: No rashes Neurological: Normal speech, Normal strength at 5/5 x4 extr, Normal tone, Normal affect - Studies Laboratory Data (last 24 hrs) 09/10/21 18:41: PT 10.6, INR 0.96 09/10/21 18:41: WBC 7.1, Hgb 9.5 L, Hct 28.3 L, Plt Count 274 09/10/21 18:41: Sodium 130 L, Potassium 4.7, BUN 57 H, Creatinine 2.58 H, Glucose 139 H, Magnesium 2.4, Total Bilirubin 0.2, AST 19, ALT 17, Alkaline Phosphatase 65 Assessment and Plan - Problems (Diagnosis) (1) Type 2 diabetes mellitus Current Visit: Yes Status: Chronic Qualifiers: 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 moth exterminator use Diabetes m ellitus complication status: with hypoglycemia Diabetes mellitus complication detail: without coma Qualified Code(s): E11.649 - Type 2 diabetes mellitus with hypoglycemia without coma (2) CHF (congestive heart failure) Current Visit: Yes Status: Chronic Qualifiers: Heart failure type: unspecified Heart failure chronicity: chronic Qualified Code(s): I50.9 - Heart failure, unspecified (3) Acute kidney injury superimposed on CKD Current Visit: Yes Status: Acute (4) Hyponatremia Current Visit: Yes Status: Acute (5) Anemia Current Visit: Yes Status: Chronic Qualifiers: Anemia type: unspecified type Qualified Code(s): D64.9 - Anemia, unspecified (6) Hypertension Current Visit: No Status: Chronic Qualifiers: Hypertension type: primary hypertension Qualified Code(s): I10 - Essential (primary) hypertension - Plan Type 2 Diabetes with Hypoglycemia: Patient has remained hypoglycemic despite two 250mL boluses of D10W and 500 mL D10W running at 75 cc/hr. Patient remains asymptomatic. Hospital does not currently have D50. Encouraging diet to improve blood sugars. Patient has CHF with unknown EF and do not want to cause fluid overload. No signs at this time. Will run D10W at 100 cc/hr overnight and check BS q2h. Lasix PRN. CHF: EF is currently unknown. Will continue home medications, including lasix, and monitor for signs of fluid overload. CXR showed "baseline interstitial fibrotic pattern which is accentuated by low lung volumes. This could mask an early interstitial edema or infiltrate." BNP elevated at 1047. Echo and cardiology consult if worsening. ABDIFATAH on CKD2: Cr 2.58 (~baseline < 1), GFR 17 (~baseline 67). Could be secondary to UTI, drug-induced, or dehydration. Will trend. Avoid nephrotoxic drugs. Urine sodium and Cr pending. Consider nephrology consult. Elevated Lactic Acid: Initial lactic acid 2.3. Repeat was 1.8. Patient has been taking bactrim for UTI. Urine clean at this time. No other signs of infection/sepsis. Urine and blood cultures sent. Given 1g rocephin in the ED. Hypertension: Patient has been hypotensive during her stay. Will hold antihypertensives and monitor BP. Anemia: Hgb 9.5. Patient has chronic anemia but baseline appears to be ~11. Ordered iron studies, B12, and folate. Will continue to monitor H&H. Reconcile and continue other medications as appropriate. Heparin for DVT PPx. Full Code. Discharge Plan: Home Plan to discharge in: Greater than 2 days - Advance Directives Does patient have a Living Will: No Does patient have a Durable POA for Healthcare: Yes - Code Status/Comfort Care Code Status Assessed: Yes (Full) Critical Care: No Time Spent Managing Pts Care (In Minutes): 70
[2021-09-10] MEDS ORDERED: DEXTROSE 10%-WATER 500 ML IV ONE (22:49)
[2021-09-11] MEDS ORDERED: ACETAMINOPHEN 500 MG TAB PO PRN (01:50)
[2021-09-11] MEDS ORDERED: ONDANSETRON 4 MG/2 ML VIAL IV PRN (01:50)
[2021-09-11] MEDS ORDERED: D10W 250 ML IV SCH (01:50)
[2021-09-11 03:28] LABS: Absolute Lymphocytes (CBC) 0.4 K/uL (0.7-4.9); Hematocrit 28.9 % (36.0-45.0); Lymphocytes % 4.9 % (15.3-44.8); MPV 7.2 fL (7.6-11.3); RBC Red Blood Cell Count 3.21 M/uL (3.86-4.86)
[2021-09-11] MEDS: HEPARIN 5000 UNIT/ML 1 ML VIAL SQ SCH ×3 (03:30→17:12)
[2021-09-11] MEDS ORDERED: HEPARIN 5000 UNIT/ML 1 ML VIAL ONE (03:39)
[2021-09-11 04:30] LABS: Blood Morphology Comment NOT SEEN (NOT SEEN); Platelet Estimate ADEQ
[2021-09-11] MEDS ORDERED: FUROSEMIDE 40 MG/4 ML VIAL IV ONE (04:34)
[2021-09-11 04:44] LABS: BUN Blood Urea Nitrogen 48 mg/dL (7-18); Bicarbonate 25 mmol/L (21-32); Folic Acid, (Folate) > 20.0 ng/mL (3.1-17.5); Glucose Level 171 mg/dL (74-106); Magnesium 2.2 mg/dL (1.8-2.4); Phosphorus 3.7 mg/dL (2.5-4.9); Potassium 4.8 mmol/L (3.5-5.1); Sodium Level 133 mmol/L (136-145); Transferrin 223 mg/dL (200-360)
[2021-09-11] MEDS: DEXTROSE 10%-WATER 500 ML IV SCH ×3 (04:55→11:41)
[2021-09-11 05:08] LABS: Urine Appearance Clear (Clear); Urine Bilirubin Negative (Negative); Urine Blood Negative (Negative); Urine Color Yellow (Yellow); Urine Glucose Negative (Negative); Urine Protein Negative (Negative); Urine Urobilinogen 0.2 mg/dL (0.2-1.0)
[2021-09-11 05:10] LABS: Urine Microscopic Reflex NO UMIC
[2021-09-11 06:37] VITALS: BMI 24.0
--- NOTE | 2021-09-11 14:06 | P.PN ---
Subjective Date of Service: 09/11/21 Primary Care Provider: Janice Chief Complaint: Hypoglycemia, ABDIFATAH Subjective: No new changes, No C/O voiced Physical Examination - Vital Signs Temperature: 98.4 F Blood Pressure: 120/59 Pulse: 83 Respirations: 16 Pulse Ox (%): 98 - Studies Laboratory Data (last 24 hrs) 09/10/21 18:41: PT 10.6, INR 0.96 09/10/21 18:41: WBC 7.1, Hgb 9.5 L, Hct 28.3 L, Plt Count 274 09/10/21 18:41: Sodium 130 L, Potassium 4.7, BUN 57 H, Creatinine 2.58 H, Glucose 139 H, Magnesium 2.4, Total Bilirubin 0.2, AST 19, ALT 17, Alkaline Phosphatase 65 Microbiology Data (last 24 hrs): 09/10/21 18:41 Blood - Blood Anaerobic Blood Culture - Final Assessment And Plan Physician Review: Patient Assessed, Agree with Above Assessment and Plan Physician Review Additional Text: 09/11/21 13:46 - Physical Exam General: Alert, In no apparent distress, Oriented x3 HEENT: Atraumatic, PERRLA, EOMI, Sclerae nonicteric Neck: Supple, 2+ carotid pulse no bruit, No LAD, Without JVD or thyroid abnormality Respiratory: Clear to auscultation bilaterally, Normal air movement Cardiovascular: Regular rate/rhythm, Normal S1 S2 Gastrointestinal: Normal bowel sounds, No tenderness Musculoskeletal: No tenderness Integumentary: No rashes Neurological: Normal speech, Normal strength at 5/5 x4 extr, Normal tone, Normal affect - Studies Laboratory Data (last 24 hrs) 09/10/21 18:41: PT 10.6, INR 0.96 09/10/21 18:41: WBC 7.1, Hgb 9.5 L, Hct 28.3 L, Plt Count 274 09/10/21 18:41: Sodium 130 L, Potassium 4.7, BUN 57 H, Creatinine 2.58 H, Glucose 139 H, Magnesium 2.4, Total Bilirubin 0.2, AST 19, ALT 17, Alkaline Phosphatase 65 Assessment and Plan - Problems (Diagnosis) (1) Type 2 diabetes mellitus Current Visit: Yes Status: Chronic Qualifiers: 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 Diabetes mellitus complication status: with hypoglycemia Diabetes mellitus complication detail: without coma Qualified Code(s): E11.649 - Type 2 diabetes mellitus with hypoglycemia without coma (2) CHF (congestive heart failure) Current Visit: Yes Status: Chronic Qualifiers: Heart failure type: unspecified Heart failure chronicity: chronic Qualified Code(s): I50.9 - Heart failure, unspecified (3) Acute kidney injury superimposed on CKD Current Visit: Yes Status: Acute (4) Hyponatremia Current Visit: Yes Status: Acute (5) Anemia Current Visit: Yes Status: Chronic Qualifiers: Anemia type: unspecified type Qualified Code(s): D64.9 - Anemia, unspecified (6) Hypertension Current Visit: No Status: Chronic Qualifiers: Hypertension type: primary hypertension Qualified Code(s): I10 - Essential (primary) hypertension - Plan Improved glucose levels now Will DC D10 and follow Patient was on glimepiride twice daily, last dose was 36 hours ago Glucose most controlled now with D10 We DC D10 and monitor Tolerating p.o. well Denies any symptoms of cough, doubt associated pulmonary edema or infiltrate, will hold off Lasix for now Previously on antibiotics for UTI, switched to Augmentin Follow repeat creatinine in a.m., previously elevatedlikely due to Bactrim use Continue to hold off Bactrim H&H stable, continue to follow Possible discharge in a.m. if stable glucose Switch glucose checks to every 4 hours Time Spent Managing PTS Care (In Minutes): 45
[2021-09-11] MEDS: HYDROCODONE/APAP 7.5/325 MG TAB PO SCH ×2 (17:12→23:10)
[2021-09-11] MEDS: GABAPENTIN 100 MG CAP PO SCH (20:32)
[2021-09-11] MEDS: AMOX/K CLAV 500 MG TAB PO SCH (20:33)
[2021-09-12] MEDS: HEPARIN 5000 UNIT/ML 1 ML VIAL SQ SCH ×2 (00:05→08:53)
[2021-09-12 04:48] VITALS: O2SAT 97
[2021-09-12] MEDS: HYDROCODONE/APAP 7.5/325 MG TAB PO SCH (05:14)
[2021-09-12 06:06] LABS: Absolute Lymphocytes (CBC) 0.8 K/uL (0.7-4.9); Hematocrit 29.1 % (36.0-45.0); Lymphocytes % 18.8 % (15.3-44.8); MPV 6.8 fL (7.6-11.3); RBC Red Blood Cell Count 3.22 M/uL (3.86-4.86)
[2021-09-12 06:24] LABS: Albumin 2.9 g/dL (3.4-5.0); Bilirubin Total 0.3 mg/dL (0.2-1.0); Potassium 4.5 mmol/L (3.5-5.1); Protein, Total 6.1 g/dL (6.4-8.2)
--- NOTE | 2021-09-12 08:37 | P.DS ---
Admission Date: 09/10/21 Discharge Date: 09/12/21 Primary Care Provider: Janice Discharge Condition: FAIR Reason for Admission: Hypoglycemia, ABDIFATAH Brief History of Present Illness: History of Present Illness: Patient is an 89-year-old female with past medical history of type 2 diabetes [id number], hypertension, CHF, CKD2 who presented to the ED via EMS with signs and symptoms of a stroke. EMS reported that family called because patient was lethargic, leaning over in her wheelchair, and slurring speech. EMS initial blood pressure was 74/35 and BGL 71. Patient also had recently taken a [place] as prescribed. A code stroke was initially called. She was given 250 mL of D10 and Narcan. Patient then became more alert. Head CT negative for acute intracranial process. Labs significant for sodium of 130, creatinine 2.58, BUN 57, GFR 17, hemoglobin 9.5, lactic acid 2.3. Her blood sugar improved to 132 after D10 however it later dropped to 58. She was put on D10 @ 75 cc and glucose remained low at 49. Another D10 250 bolus and it went up to 91. Then on D10 @ 75 cc/hr it went back down to 44. Hospital does not currently have any D50. Upon my assessment, patient is asymptomatic, oriented x3 and complaining of no pain. She states her blood sugars have gotten low before but not quite this low. She has not been checking her blood sugar as regularly as she used to. She does not think that she has been eating or drinking any less than usual and reports taking her medications regularly. She has been taking Bactrim for recent UTI. Will admit patient for further evaluation and treatment. Allergies No Known Allergies Allergy (Verified 08/03/16 07:07) Home medications list reviewed: Yes Home Medications: Acetaminophen [Tylenol Arthritis] 650 mg PO BID 07/30/16 Calcium Carbonate/Vitamin D3 [Caltrate 600 + D Tablet] 1 each PO BID 07/30/16 Fish Oil/Borage/Flax/Om3,6,9 1 [Ingram 3-6-9 1,200 mg Softgel] 1,200 mg PO DAILY 07/30/16 Glimepiride [Amaryl] 0.5 mg PO DAILY 07/30/16 Ibandronate Sodium [Boniva] 150 mg PO ONCE 07/30/16 Lisinopril/Hydrochlorothiazide [Lisinopril-Hctz 10-12.5 mg Tab] 1 each PO DAILY 07/30/16 Multivit-Min/FA/Lycopen/Lutein [Centrum Silver Tablet] 1 each PO DAILY 07/30/16 Ingram-3 Fatty Acids [Fish Oil] 300 mg PO DAILY 07/30/16 Vit A/Vit C/Vit E/Zinc/Copper [Icaps Areds Formula Tablet] 1 each PO DAILY 07/30/16 Hydrocodone 7.5/APAP 325 [[place] 7.5/325 mg*] 1 tab PO Q6H PRN #30 tab 06/15/21 Levofloxacin [Levaquin] 500 mg PO DAILY #7 tablet 06/15/21 metroNIDAZOLE [Flagyl] 500 mg PO Q8H #21 tablet 06/15/21 Hospital Course: Hospital course Patient was admitted with symptomatic hypoglycemia with metabolic encephalopathy, she was also noted to be in acute kidney injury, hyponatremia. She has been receiving Bactrim for UTI. She has also been on Amaryl for her glucose control. On admission she was started on D10 after multiple doses of the 50. Her blood pressure medication including lisinopril and furosemide were held. Her Bactrim was also discontinued. She was started on Augmentin for completion of UTI treatment as well as a small infiltrate noted on chest x-ray. Patient did not have any symptoms for pneumonia. Her glucose level significantly improved requiring discontinuation of D10 after 36 hours into hospitalization. Her hemoglobin A1c was low at 5.6. Patient was discontinued off oral hypoglycemic agent that Amaryl. She has been advised to further avoid the medication if ever needed for hyperglycemia in the future patient might benefit from metformin or SLG 2 inhibitors. Serum sodium as well as her creatinine improved to normal level. Patient states tolerating p.o. very well ambulating with no complaints at this time she will be discharged home. - Physical Exam General: Alert, In no apparent distress, Oriented x3 HEENT: Atraumatic, PERRLA, EOMI, Sclerae nonicteric Neck: Supple, 2+ carotid pulse no bruit, No LAD, Without JVD or thyroid abnormality Respiratory: Clear to auscultation bilaterally, Normal air movement Cardiovascular: Regular rate/rhythm, Normal S1 S2 Gastrointestinal: Normal bowel sounds, No tenderness Musculoskeletal: No tenderness Integumentary: No rashes Neurological: Normal speech, Normal strength at 5/5 x4 extr, Normal tone, Normal affect Assessment and Plan - Problems (Diagnosis) (1) Type 2 diabetes mellitus Current Visit: Yes Status: Chronic Qualifiers: Diabetes mellitus crime specialist insulin use: without crime specialist use Diabetes mellitus complication status: with hypoglycemia Diabetes mellitus complication detail: without coma Qualified Code(s): E11.649 - Type 2 diabetes mellitus with hypoglycemia without coma (2) CHF (congestive heart failure) Current Visit: Yes Status: Chronic Qualifiers: Heart failure type: unspecified Heart failure chronicity: chronic Qualified Code(s): I50.9 - Heart failure, unspecified (3) Acute kidney injury superimposed on CKD Current Visit: Yes Status: Acute (4) Hyponatremia Current Visit: Yes Status: Acute (5) Anemia Current Visit: Yes Status: Chronic Qualifiers: Anemia type: unspecified type Qualified Code(s): D64.9 - Anemia, unspecified (6) Hypertension Current Visit: No Status: Chronic Qualifiers: Hypertension type: primary hypertension Qualified Code(s): I10 - Essential (primary) hypertension Vital Signs/Physical Exam: Temp Pulse Resp BP Pulse Ox 98.2 F 85 18 144/74 H 98 09/12/21 04:00 09/12/21 04:00 09/12/21 06:14 09/12/21 04:00 09/12/21 06:14 Laboratory Data at Discharge: WBC 4.1 K/uL (4.3-10.9) L D 09/12/21 05:55 Hgb 9.7 g/dL (12.0-15.0) L 09/12/21 05:55 Hct 29.1 % (36.0-45.0) L 09/12/21 05:55 Plt Count 272 K/uL (152-406) 09/12/21 05:55 PT 10.6 SECONDS (9.5-12.5) 09/10/21 18:41 INR 0.96 09/10/21 18:41 Sodium 139 mmol/L (136-145) 09/12/21 05:55 Potassium 4.5 mmol/L (3.5-5.1) 09/12/21 05:55 BUN 24 mg/dL (7-18) H D 09/12/21 05:55 Creatinine 0.82 mg/dL (0.55-1.3) D 09/12/21 05:55 Glucose 118 mg/dL (74-106) H 09/12/21 05:55 Phosphorus 3.7 mg/dL (2.5-4.9) 09/11/21 03:01 Magnesium 2.2 mg/dL (1.8-2.4) 09/11/21 03:01 Total Bilirubin 0.3 mg/dL (0.2-1.0) 09/12/21 05:55 AST 18 U/L (15-37) 09/12/21 05:55 ALT 20 U/L (12-78) 09/12/21 05:55 Alkaline Phosphatase 58 U/L (45-117) 09/12/21 05:55 Home Medications: Furosemide [Lasix*] 40 mg PO DAILY 09/11/21 Gabapentin [Neurontin*] 200 mg PO BID 09/11/21 Hydrocodone 7.5/APAP 325 [[place] 7.5/325 mg*] 1 tab PO Q6H 09/11/21 Lisinopril [Zestril] 20 mg PO DAILY 09/11/21 Omeprazole 20 mg PO DAILY 09/11/21 Amox/Clavulanate [Augmentin 500-125 mg Tab*] 500 mg PO BID #10 tab 09/12/21 New Medications: Amox/Clavulanate [Augmentin 500-125 mg Tab*] 500 mg PO BID #10 tab Diet: ADA Activity: Ad jose Followup: Randy Camacho DO, DO [Primary Care Provider] - Time spent managing pt's care (in minutes): 35
[2021-09-12] MEDS: GABAPENTIN 100 MG CAP PO SCH (08:52)
[2021-09-12] MEDS: AMOX/K CLAV 500 MG TAB PO SCH (08:53)
[2021-09-12] MEDS ORDERED: HOME MED 1 EA UNK (Omeprazole [Omeprazole] 20 MG Capsule.Dr) PO SCH (09:00)
[2021-09-12] MEDS ORDERED: PANTOPRAZOLE 40MG TABLET PO SCH (09:00)
--- NOTE | 2021-09-12 09:36 | EKG ---
Test Date: 2021-09-10 Test Time: 18:17:41 Director Of Automation: MB MEASUREMENT RESULTS: Intervals: Rate: 73 NM: 304 QRSD: 76 QT: 400 QTc: 440 [place]: P: NM: 304 QRS: 66 T: 91 INTERPRETIVE STATEMENTS: Sinus rhythm with 1st degree AV block with premature atrial complexes Possible Anterior infarct, age undetermined Abnormal ECG Compared to ECG 03/31/2016 07:04:34 Atrial premature complex(es) now present Myocardial infarct finding now present Electronically Signed On 09-12-21 09:32:08 CDT by Felix Guzmán
[2021-09-12 10:23] VITALS: BP 139/66; TEMP 98
== END 2021-09-12 10:26 | disposition home or self-care (01) | DRG 637 ==
LOC: ER 18:09 → ERHOLD 22:02 → 2ND 09-11 04:05
PROVIDERS: ADMIT Hospitalist; ATTEND Internal Medicine
DX: E11.649 Type 2 diabetes mellitus with hypoglycemia without coma (principal); G93.41 Metabolic encephalopathy; N39.0 Urinary tract infection, site not specified; E87.1 Hypo-osmolality and hyponatremia; I13.0 Hypertensive heart and chronic kidney disease with heart failure and stage 1 through stage 4 chronic kidney disease, or unspecified chronic kidney disease; I50.9 Heart failure, unspecified; N18.2 Chronic kidney disease, stage 2 (mild); E11.22 Type 2 diabetes mellitus with diabetic chronic kidney disease; N17.9 Acute kidney failure, unspecified; D64.9 Anemia, unspecified; H35.30 Unspecified macular degeneration; M48.061 Spinal stenosis, lumbar region without neurogenic claudication; Z79.84 Long term (current) use of oral hypoglycemic drugs; Z79.899 Other long term (current) drug therapy; Z20.822 Contact with and (suspected) exposure to COVID-19; Z96.653 Presence of artificial knee joint, bilateral; Z82.0 Family history of epilepsy and other diseases of the nervous system
CPT/HCPCS: 36415; 51702; 70450; 71045; 80048; 80053; 80076; 80307; 80329; 81003; 81015; 82607; 82746; 82947; 83036; 83540; 83605; 83735; 83880; 83930; 83935; 84100; 84145; 84300; 84466; 84484; 85025; 85610; 87040; 93005; 97116; 97161; 97530; 99291; 99292; J1644; J1940; J2310; U0003